=== PATIENT | male | born 1950 | race Caucasian/White ===

== ENCOUNTER → 2017-09-15 10:05 | Outpatient (CLI) | payer OTHER, SELFPAY | PROVIDERS: Visit Provider Family Medicine | DX: R31.9 Hematuria, unspecified (principal) | CPT/HCPCS: 87086 ==

== ENCOUNTER → 2018-04-28 08:59 | Outpatient (CLI) | payer OTHER, SELFPAY ==
[2018-04-28 10:45] LABS: AST(SGOT) 31 U/L (15-37); Alanine Aminotransfer ALT/SGPT 50 U/L (16-61); Albumin, Serum 3.6 g/dL (3.2-5.0); Alkaline Phosphatase 69 U/L (45-117); Anion Gap 4 (5-15); BUN 13 mg/dL (7-18); BUN/Creat Ratio 12.4 RATIO (10-20); Calcium,Total 8.1 mg/dL (8.5-10.1); Chloride 107 mmol/L (98-107); Cholesterol 163 mg/dL (200); Creatinine, Serum 1.05 mg/dL (0.70-1.30); EST Glomerular Filtration Rate 75 mL/min (>60); Est Glom Filt Rate - Afr Amer 91 mL/min (>60); Globulin 3.5 g/dL (2.2-4.2); Glucose 116 mg/dL (74-106); High Density Lipoprotein 34 mg/dL; Potassium 3.9 mmol/L (3.5-5.1); Protein, Total 7.1 g/dL (6.4-8.2); Sodium Level 140 mmol/L (136-145); Triglycerides 230 mg/dL; Very Low Density Lipoprotein 46 mg/dL (5-40)
[2018-04-28 10:50] LABS: Vitamin B12 620 pg/mL (211-911); Vitamin D,25 Hydroxy 61.9 ng/mL (29.95-100.01)
[2018-05-01 11:53] LABS: PSA, Free 0.48 ng/mL
== END ==
PROVIDERS: Family Provider Family Medicine; PCP Family Medicine; Visit Provider Family Medicine
DX: I10 Essential (primary) hypertension (principal); E55.9 Vitamin D deficiency, unspecified; E53.8 Deficiency of other specified B group vitamins; R97.20 Elevated prostate specific antigen [PSA]
CPT/HCPCS: 36415; 80053; 80061; 82306; 82607; 84153; 84154

== ENCOUNTER → 2019-02-23 | Outpatient (CLI) | payer OTHER, SELFPAY ==
[2018-05-12 08:56] VITALS: BMI 30.8
[2019-02-23 10:27] LABS: Anion Gap 9 (5-15); BUN 24 mg/dL (7-18); Calcium,Total 8.4 mg/dL (8.5-10.1); Chloride 108 mmol/L (98-107); Cholesterol 161 mg/dL (200); Creatinine, Serum 1.09 mg/dL (0.70-1.30); EST Glomerular Filtration Rate 72 mL/min (>60); Est Glom Filt Rate - Afr Amer 87 mL/min (>60); Glucose 105 mg/dL (74-106); High Density Lipoprotein 35 mg/dL; Potassium 4.1 mmol/L (3.5-5.1); Sodium Level 141 mmol/L (136-145); Triglycerides 137 mg/dL; Very Low Density Lipoprotein 27 mg/dL (5-40)
== END | disposition home or self-care (01) ==
LOC: MFPLAB 09:03
PROVIDERS: Family Provider Family Medicine; PCP Family Medicine; Referring Provider Family Medicine; Visit Provider Family Medicine
DX: I10 Essential (primary) hypertension (principal); E78.5 Hyperlipidemia, unspecified
CPT/HCPCS: 36415; 80048; 80061

== ENCOUNTER → 2019-03-29 | Outpatient (CLI) | payer OTHER, SELFPAY ==
[2018-05-12 08:56] VITALS: BMI 30.8
[2019-03-29 12:35] LABS: PSA,Total - Annual Screen 4.72 ng/mL (0.00-4.00)
[2019-03-29 13:06] LABS: Vitamin B12 582 pg/mL (211-911)
== END | disposition home or self-care (01) ==
LOC: MFPLAB 09:53
PROVIDERS: Family Provider Family Medicine; PCP Family Medicine; Referring Provider Family Medicine; Visit Provider Family Medicine
DX: E53.8 Deficiency of other specified B group vitamins (principal); E55.9 Vitamin D deficiency, unspecified; Z12.5 Encounter for screening for malignant neoplasm of prostate
CPT/HCPCS: 36415; 82306; 82607; 84153; G0103

== ENCOUNTER → 2019-09-07 | Outpatient (CLI) | payer OTHER, SELFPAY ==
[2019-08-20 15:34] VITALS: BMI 31.8
--- NOTE | 2019-09-07 10:58 | VDLE_ITS ---
Reason For Study: Lt Leg Pain RIGHT LEFT CFV is compressible, spontaneous, phasic, GSV is normal. competent and demonstrates normal CFV is compressible, spontaneous, phasic, augmentation. competent, and demonstrates normal Procedure augmentation. Exam performed in department. FV is compressible, spontaneous, phasic, Pt sent home per Dr. Calero. competent and demonstrates normal A preliminary report was called and/or faxed augmentation. to Dr. Galilea Clark. POP V is compressible, spontaneous, phasic, competent and demonstrates normal augmentation. T/P Trunk is compressible. PTV is compressible. LT PerV is compressible. 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 Interpretation Summary Deep veins of the left lower extremity are patent and compressible segmentally. There is no evidence of left lower extremity deep vein thrombosis. Valvular competence appears intact within the proximal deep venous system on the left . The left great saphenous vein appears patent and compressible segmentally. 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 The aneurysm is thrombus lined, though arterial flow is maintained. Clinical correlation is advised. Ordering Physician: Jeff Calero Referring Physician: Jeff Calero Performed By: Genie Bustos, BALTAZAR, RVT
== END | disposition home or self-care (01) ==
LOC: CVS 10:51
PROVIDERS: PCP Family Medicine; Referring Provider Family Medicine; Visit Provider Family Medicine
DX: M79.605 Pain in left leg (principal)
CPT/HCPCS: 93971

== ENCOUNTER → 2019-09-10 | Outpatient (CLI) | payer OTHER, SELFPAY ==
[2019-08-20 15:34] VITALS: BMI 31.8
== END | disposition home or self-care (01) ==
LOC: CVS 13:46
PROVIDERS: PCP Family Medicine; Referring Provider Family Medicine; Visit Provider Family Medicine
DX: R20.9 Unspecified disturbances of skin sensation (principal)
CPT/HCPCS: 93922

== ENCOUNTER → 2019-09-27 | Outpatient (CLI) | payer OTHER, SELFPAY ==
[2019-08-20 15:34] VITALS: BMI 31.8
[2019-09-27 14:00] LABS: Creatinine, Serum 1.05 mg/dL (0.70-1.30); EST Glomerular Filtration Rate 75 mL/min (>60); Est Glom Filt Rate - Afr Amer 90 mL/min (>60)
== END | disposition home or self-care (01) ==
PROVIDERS: PCP Family Medicine; Referring Provider Surgery Vascular Surgery; Visit Provider Surgery Vascular Surgery
DX: I70.212 Atherosclerosis of native arteries of extremities with intermittent claudication, left leg (principal); I72.4 Aneurysm of artery of lower extremity
CPT/HCPCS: 36415; 82565

== ENCOUNTER → 2019-10-05 07:26 | Outpatient (CLI) | payer OTHER, SELFPAY ==
[2019-08-20 15:34] VITALS: BMI 31.8
--- NOTE | 2019-10-05 07:33 | CT_ITS ---
STUDY: CTA OF THE ABDOMINAL AORTA AND BILATERAL LOWER EXTREMITIES REASON FOR EXAM: Male, 69 years old. PT STATED LEFT LEG PAIN, R/O ATHEROSCLEROSIS, CLAUDICATION RADIATION DOSAGE (If Supplied By Facility): CTDIvol = ( 8.98 ) mGy, DLP = ( 1546.22 ) mGycm TECHNIQUE: Axial CT angiography multi-detector data acquisition was obtained from the dome of the liver to the ankles following intravenous administration of 100ML ISOVUE 370. Axial images and MIP images were reconstructed from the axial data set. Post-processing of the angiographic images was performed, with multiplanar reformation and 3D reconstruction. Individualized dose optimization techniques were used for this CT. TECHNICAL QUALITY: Good COMPARISON: None. Descriptors of Narrowing: None (0%) Mild (< 50%) Moderate (50-70%) Severe (70-90%) Subtotal/Total Occlusion (90-100%) Non-Evaluable (technically non-diagnostic FINDINGS: Fatty infiltration of the liver. Small hiatal hernia. Small benign-appearing retroperitoneal lymphadenopathy. Sigmoid diverticulosis. Abdominal aorta: Scattered atherosclerotic plaques of the infrarenal abdominal aorta. Celiac and superior mesenteric arteries: No demonstrated narrowing. Inferior mesenteric artery: No demonstrated narrowing. Right renal artery(arteries): No demonstrated narrowing. Left renal artery(arteries): No demonstrated narrowing. Right common iliac artery: Nonstenotic atherosclerotic plaques. Right external iliac artery: No demonstrated narrowing. Right internal iliac artery: No demonstrated narrowing. Left common iliac artery: Nonstenotic atherosclerotic plaques. Left external iliac artery: No demonstrated narrowing. Left internal iliac artery: No demonstrated narrowing. RIGHT LOWER EXTREMITY Right common femoral artery: No demonstrated narrowing. Right profundus femoris: No demonstrated narrowing. Right superficial femoral: No demonstrated narrowing. Right popliteal artery: No demonstrated narrowing. Right tibioperoneal trunk: No demonstrated narrowing. Right anterior tibial artery: No demonstrated narrowing. Right posterior tibial artery: No demonstrated narrowing. Right peroneal artery: No demonstrated narrowing. LEFT LOWER EXTREMITY Left common femoral artery: No demonstrated narrowing. Left profundus femoris: No demonstrated narrowing. Left superficial femoral: No demonstrated narrowing. Left popliteal artery: There is occlusion of the popliteal artery at the level of the knee joint. A thrombus is seen within the popliteal artery. Incidental note is made of a 3.5 cm x 2.7 cm popliteal cyst on the left side. Left tibioperoneal trunk: The tibioperoneal trunk is occluded. Left anterior tibial artery: No demonstrated narrowing. Left posterior tibial artery: No demonstrated narrowing. Left peroneal artery: No demonstrated narrowing. CT/CTA Abd w/Runoff W/WO Contrast IMPRESSION: Thrombus in the left popliteal artery with occlusion of the popliteal artery at the level of the knee joint. There is reconstruction of the anterior tibial, posterior tibial and peroneal arteries distal to the tibial peroneal trunk via collaterals. Electronically Signed: Sim Earl, at 10:20 EDT , Service support ,
== END ==
PROVIDERS: PCP Family Medicine; Referring Provider Surgery Vascular Surgery; Visit Provider Surgery Vascular Surgery
DX: I70.212 Atherosclerosis of native arteries of extremities with intermittent claudication, left leg (principal); I72.4 Aneurysm of artery of lower extremity; M79.605 Pain in left leg
CPT/HCPCS: 75635; Q9967

== ENCOUNTER → 2019-11-09 | Outpatient (CLI) | payer OTHER, SELFPAY ==
[2019-08-20 15:34] VITALS: BMI 31.8
[2019-11-09 13:29] LABS: Anion Gap 4 (5-15); BUN 18 mg/dL (7-18); BUN/Creat Ratio 16.5 RATIO (10-20); Calcium,Total 9.2 mg/dL (8.5-10.1); Chloride 108 mmol/L (98-107); Cholesterol 146 mg/dL (200); Creatinine, Serum 1.09 mg/dL (0.70-1.30); EST Glomerular Filtration Rate 72 mL/min (>60); Est Glom Filt Rate - Afr Amer 87 mL/min (>60); Glucose 107 mg/dL (74-106); High Density Lipoprotein 35 mg/dL; Sodium Level 139 mmol/L (136-145); Triglycerides 146 mg/dL; Very Low Density Lipoprotein 29 mg/dL (5-40)
== END | disposition home or self-care (01) ==
LOC: MTLAB 10:02
PROVIDERS: PCP Family Medicine; Referring Provider Family Medicine; Visit Provider Family Medicine
DX: E78.5 Hyperlipidemia, unspecified (principal); I10 Essential (primary) hypertension
CPT/HCPCS: 80048; 80061

== ENCOUNTER → 2019-11-14 07:53 | Outpatient (CLI) | payer OTHER, SELFPAY ==
[2019-08-20 15:34] VITALS: BMI 31.8
--- NOTE | 2019-11-14 08:01 | VDLE_ITS ---
Reason For Study: Atherosclerosis, Pre-surgical RIGHT LEFT GSV prox thigh, 0.23 x 0.24cm. GSV prox thigh, 0.38 x 0.37 cm. GSV mid thigh, 0.22 x 0.24 cm. GSV mid thigh, 0.38 x 0.38 cm. GSV distal thigh, 0.19 x 0.19 cm. GSV distal thigh, 0.36 x 0.36 cm. GSV knee, 0.20 x 0.24 cm. GSV knee, 0.26 x 0.28 cm. GSV prox calf, 0.25 x 0.28 cm. GSV prox calf, 0.25 x 0.25 cm. Branch prox calf, 0.20 x 0.20 cm. GSV mid calf, 0.26 x 0.27 cm. GSV mid calf, 0.29 x 0.30 cm. GSV distal calf, 0.22 x 0.21 cm. GSV distal calf, 0.25 x 0.28 cm. SSV prox, 0.27 x 0.29 cm. SSV prox, 0.25 x 0.26 cm. SSV mid, 0.30 x 0.31 cm. SSV mid, 0.24 x 0.24 cm. SSV distal, 0.22 x 0.24 cm. Branch mid calf, 0.14 x 0.13 cm. SSV distal, 0.21 x 0.24 cm. Procedure Exam performed in department. Interpretation Summary Bilateral saphenous veins appear adequate wiht the left better than the right. Ordering Physician: Wong Martinez Referring Physician: Mark Bowles MD Performed By: Cecy Sequeira RVT
== END ==
PROVIDERS: PCP Family Medicine; Referring Provider Surgery Vascular Surgery; Visit Provider Surgery Vascular Surgery
DX: Z01.818 Encounter for other preprocedural examination (principal); I70.212 Atherosclerosis of native arteries of extremities with intermittent claudication, left leg; I72.4 Aneurysm of artery of lower extremity
CPT/HCPCS: 93970

== ENCOUNTER → 2020-05-30 12:41 | Outpatient (CLI) | payer OTHER, SELFPAY ==
[2019-08-20 15:34] VITALS: BMI 31.8
[2020-05-30 15:07] LABS: Hematocrit 44.8 % (40-54); Hemoglobin 14.7 g/dL (13.0-16.5); Mean Corp Hgb Conc 32.8 g/dL (32-36); Mean Corpuscular Hgb 29.6 pg (27.0-32.0); Mean Corpuscular Volume 90.3 fL (80-94); Mean Platelet Vol. 11.1 fl (6.2-12.0); Platelet Count 238 K/mm3 (150-450); RBC Distribution Width CV 12.7 % (11.6-14.6); RBC Distribution Width SD 42.4 fl (35.1-43.9); Red Blood Count 4.96 M/mm3 (4.6-6.2); White Blood Count 6.4 K/mm3 (4.4-11.0)
[2020-05-30 15:33] LABS: Vitamin B12 434 pg/mL (211-911); Vitamin D,25 Hydroxy 67.5 ng/mL
[2020-05-30 15:55] LABS: ALB/GLOB Ratio 1.2 RATIO (0.9-2.4); AST(SGOT) 25 U/L (15-37); Alanine Aminotransfer ALT/SGPT 38 U/L (16-61); Alkaline Phosphatase 78 U/L (45-117); Anion Gap 7 (5-15); BUN 14 mg/dL (7-18); BUN/Creat Ratio 13.2 RATIO (10-20); Calcium,Total 8.8 mg/dL (8.5-10.1); Chloride 108 mmol/L (98-107); Cholesterol 151 mg/dL (200); Creatinine, Serum 1.06 mg/dL (0.70-1.30); EST Glomerular Filtration Rate 74 mL/min (>60); Est Glom Filt Rate - Afr Amer 89 mL/min (>60); Globulin 3.3 g/dL (2.2-4.2); Glucose 88 mg/dL (74-106); High Density Lipoprotein 37 mg/dL; PSA,Total- Diagnostic 6.84 ng/mL (0.0-4.0); Protein, Total 7.3 g/dL (6.4-8.2); Sodium Level 141 mmol/L (136-145); Triglycerides 142 mg/dL; Very Low Density Lipoprotein 28 mg/dL (5-40)
== END ==
PROVIDERS: PCP Family Medicine; Referring Provider Family Medicine; Visit Provider Family Medicine
DX: I72.4 Aneurysm of artery of lower extremity (principal); I10 Essential (primary) hypertension; R97.20 Elevated prostate specific antigen [PSA]; E55.9 Vitamin D deficiency, unspecified; E53.8 Deficiency of other specified B group vitamins
CPT/HCPCS: 36415; 80053; 80061; 82306; 82607; 84153; 85027

== ENCOUNTER → 2020-07-28 | Outpatient (CLI) | payer OTHER, SELFPAY ==
[2019-08-20 15:34] VITALS: BMI 31.8
--- NOTE | 2020-07-28 | IMM_PTH ---
PATIENT: YOSI GUTIERREZ LOC: [facility] U#:[id number] AGE/SX: 69/M ROOM: RE07/28/[address]: Dr. Beck Betancur MD : 1950 BED: DIS: 07/28/2020 SPEC #: [id number] RECD: 07/30/20 10:51 STATUS: TONY REQ #: [id number] SABRINA: 07/28/20 00:[address]: Beck Betancur DEPT: IMMUNOHISTOCHEMISTRY RECD BY: Hayley Asif ENTERED: 07/30/20 10:52 SP TYPE: IMMUNO OTHR DR: Dr. Mark Bowles MD Tissues: A - PROSTATE RIGHT C - PROSTATE RIGHT Procedures: 34BE12 (add) P40 (add) 34BE12 (initial) PHYSICIAN & INSTITUTION [place] [id number] SPECIMEN INFORMATION: Tissue Source: A - Right prostate, apex, core biopsy, C - Right prostate, base, core biopsy Clinical Info: Elevated PSA Specimen Number: [id number] A & C CPT code: 59299, 60382 x3 METHODOLOGY: Deparaffinized sections of prefer/formalin-fixed tissue or PAP/DQ stained slides are incubated with monoclonal/polyclonal antibodies/oligonucleotide probes. Localization is made via biotin free immunoperoxidase method. Appropriate controls are performed and reacted as expected. Results on target cell population are indicated in the following table: RESULTS: ANTIBODY / CLONE RESULT Block A P40 (BC28) negative 34BE12 (34BE12) negative Block C P40 (BC28) negative 34BE12 (34BE12) negative These tests were developed and their performance characteristics determined by [facility]. They may not have been cleared or approved by the U.S. Food and Drug Administration. The FDA has determined that such clearance or approval is not necessary. The above immunohistochemical/dualISH markers are ordered and reviewed by the Pathologist. INTERPRETATION: A. Right prostate, apex, core biopsy: Adenocarcinoma. C. Right prostate, base, core biopsy: Adenocarcinoma. AM:nik 07/31/2020
--- NOTE | 2020-07-28 08:00 | PROSBIL_PTH ---
PATIENT: YOSI GUTIERREZ LOC: [facility] U#:[id number] AGE/SX: 69/M ROOM: RE07/28/[address]: Dr. Beck Betancur MD : 1950 BED: DIS: 07/28/2020 SPEC #: [id number] RECD: 07/28/20 12:03 STATUS: TONY TONNY #: [id number] SABRINA: 07/28/20 08:[address]: Beck Betancur DEPT: SURGICAL PATHOLOGY RECD BY: Anupama Zuniga ENTERED: 07/28/20 13:36 SP TYPE: PROST BX NAIMA DR: Dr. Mark Bowles MD Tissues: A - PROSTATE RIGHT B - PROSTATE RIGHT C - PROSTATE RIGHT D - PROSTATE LEFT E - PROSTATE LEFT F - PROSTATE LEFT Procedures: PROSTATE BX HEADER OPERATION: Prostate biopsy PRE-OP DIAGNOSIS: Elevated PSA TISSUE SUBMITTED: A - Right apex, B - Right mid, C - Right base, D - Left apex, E - Left mid, F - Left base MICROSCOPIC DIAGNOSIS A. Right prostate, apex, core biopsy: Adenocarcinoma. [place] grade: 6 (3+3) Cores involved: 1 out of 2 cores Tissue involved: 10% Greatest tumor length: 1.2 mm Perineural invasion: Present See comment. B. Right prostate, mid, core biopsy: Adenocarcinoma. Yas grade: 6 (3+3) Cores involved: 2 out of 2 cores Tissue involved: 75% Greatest tumor length: 6 mm Perineural invasion: Present, multifocal C. Right prostate, base, core biopsy: Adenocarcinoma. [place] grade: 6 (3+3) Cores involved: 2 out of 2 cores Tissue involved: 65% Greatest tumor length: 7 mm (discontinuous) Perineural invasion: Present See comment. D. Left prostate, apex, core biopsy: Chronic inflammation with focal acute inflammation. E. Left prostate, mid, core biopsy: Adenocarcinoma. [place] grade: 6 (3+3) Cores involved: 2 out of 2 cores Tissue involved: >95 % Greatest tumor length: 9.5 mm F. Left prostate, base, core biopsy: Adenocarcinoma. Yas grade: 8 (5+3) Cores involved: 2 out of 2 cores Tissue involved: >95% Greatest tumor length: 10 mm AM:nik 07/30/2020 COMMENT A & C. Immunohistochemistry ([id number]) supports the above diagnosis. MICROSCOPIC DESCRIPTION Slides are reviewed. GROSS DESCRIPTION A - Received is one container designated prostate, right apex. The specimen consists of two elongated fragments of light dickson-white soft tissue each measuring 0.7 cm in length and 0.1 cm in diameter. The specimen is totally submitted in one cassette. B - Received is one container designated prostate, right mid. The specimen consists of two elongated fragments of light dickson-white soft tissue each measuring 1 cm in length and 0.1 cm in diameter. The specimen is totally submitted in one cassette. C - Received is one container designated prostate, right base. The specimen consists of two elongated fragments of light dickson-white soft tissue each measuring 1 cm in length and 0.1 cm in diameter. The specimen is totally submitted in one cassette. D - Received is one container designated prostate, left apex. The specimen consists of one elongated fragment of light dickson-white soft tissue measuring 1 cm in length and 0.1 cm in diameter. The specimen is totally submitted in one cassette. E - Received is one container designated prostate, left mid. The specimen consists of two elongated fragments of light dickson-white soft tissue each measuring 1.5 cm in length and 0.1 cm in diameter. The specimen is totally submitted in one cassette. F - Received is one container designated prostate, left base. The specimen consists of two elongated fragments of light dickson-white soft tissue each measuring 1.5 cm in length and 0.1 cm in diameter. The specimen is totally submitted in one cassette. / AM:nik 07/29/20 TC:0 [facility]: [id number] x6
== END | disposition home or self-care (01) ==
LOC: LABSPEC 12:10
PROVIDERS: PCP Family Medicine; Referring Provider Urology; Visit Provider Urology
DX: R97.20 Elevated prostate specific antigen [PSA] (principal)
CPT/HCPCS: 88305; 88341; 88342; G0416

== ENCOUNTER → 2020-08-19 06:59 | Outpatient (CLI) | payer OTHER, SELFPAY ==
[2019-08-20 15:34] VITALS: BMI 31.8
--- NOTE | 2020-08-19 07:02 | NM_ITS ---
CLINICAL: 69-year-old male with reported history of carcinoma of the prostate. WHOLE BODY 99m Tc MDP RADIONUCLIDE BONE SCINTIGRAPHY COMPARISON: None available FINDINGS: Following the intravenous administration of approximately 25.0 mCi of 99m Tc MDP, whole body bone images reveal: 1. Increased radiopharmaceutical concentration is defined in the acromioclavicular, glenohumeral and sternoclavicular compartments of both shoulders, the visualized bilateral wrists, patellofemoral compartments of both knees, dorsal lateral compartment of the left ankle, the right midfoot, fifth lumbar vertebra anteriorly and posteriorly to the right of the midline. 2. The remaining skeletal structures are scintigraphically unremarkable with normal-appearing renal images and urinary bladder activity identified. Enhanced tracer uptake is visualized in the bilateral maxilla most consistent with periodontal disease and/or periostitis. NM/Bone Scan Whole Body IMPRESSION: 1. The increase in tracer distribution defined in the bilateral shoulders, both wrist articulations, knees bilaterally, left ankle, right midfoot, fifth lumbar vertebra is most consistent with degenerative arthritis. 2. There is no definitive typical scintigraphic evidence of diffuse axial skeletal metastatic disease on the current examination. Electronically Signed: Jayce Leung DO at 21:48 EST Tel , Service support ,
== END ==
PROVIDERS: PCP Family Medicine; Visit Provider Urology
DX: C61 Malignant neoplasm of prostate (principal)
CPT/HCPCS: 78306

== ENCOUNTER 2020-09-03 11:29 | Day surgery (SDC) | payer OTHER, SELFPAY ==
[2020-08-19 08:48] VITALS: BMI 31.6
[2020-09-03 12:01] VITALS: BP 151/85; PULSE 69; RESP 16; TEMP 36.9; O2SAT 97; BMI 32.3
[2020-09-03] MEDS: Lactated Ringers 1,000 ML 100 ML IV (12:08)
[2020-09-03] MEDS: Cefazolin 2 GM in 0.9% Normal Saline 100 ML IV (14:43)
--- NOTE | 2020-09-03 15:09 | PCM.HP.STD ---
Problem List (1) Prostate cancer Status: Chronic History of Present Illness Date of Admission: 09/03/20 Chief Complaint: Prostate cancer The patient is a 69 year old male with a history of prostate cancer with [place] 8 disease he is going to undergo radiation treatments today were to place spacer gel matrix to separate the rectum from the prostate as a hope to protect the rectum from radiation exposure and also organ to place markers in the prostate marker prostate with fiducial markers for radiation treatment planning. Past Medical History Past Medical History (Chronic Problems): Chronic Problems (Last Reviewed 08/19/20 @ 09:[address] Son Tee MD) Prostate cancer (Chronic) Venous insufficiency of left leg (Chronic) Atherosclerosis of coronary artery of [place] heart without angina pectoris (Chronic) Essential (primary) hypertension (Chronic) Hyperlipidemia (Chronic) Medical History: Medical History (Last Reviewed 08/19/20 @ 09:[address] Son Tee MD) Prostate cancer (Chronic) C61 Venous insufficiency of left leg (Chronic) I87.2 Atherosclerosis of coronary artery of [place] heart without angina pectoris (Chronic) I25.10 Essential (primary) hypertension (Chronic) I10 Hyperlipidemia (Chronic) E78.5 Obesity E66.9 Allergies codeine Allergy (Intermediate, Verified 09/03/20 11:39) unknown Home Medications: Ambulatory Orders Medication Instructions Recorded aspirin 81 mg tablet,delayed 81 mg PO DAILY 03/23/18 release cholecalciferol (vitamin D3) 50 2,000 unit PO DAILY 03/23/18 mcg (2,000 unit) capsule omega-3 fatty acids-fish oil 360 1 cap PO DAILY 03/23/18 mg-1,200 mg capsule rosuvastatin 20 mg tablet 20 mg PO DAILY #90 tab 05/12/18 nitroglycerin 0.4 mg sublingual 0.4 mg SUBLINGUAL Q5-15M PRN #25 05/05/20 tablet tab bicalutamide 50 mg tablet 50 mg PO DAILY tab 08/19/20 bisoprolol 10 1 tab PO DAILY tab 08/19/20 mg-hydrochlorothiazide 6.25 mg tablet cilostazol 100 mg tablet 100 mg PO BID tab 08/19/20 clopidogrel 75 mg tablet 75 mg PO DAILY tab 08/19/20 cyanocobalamin (vitamin B-12) 1,000 mcg PO DAILY 08/19/20 1,000 mcg capsule lisinopril 20 mg tablet 20 mg PO DAILY #90 tab 08/19/20 Surgical History: Surgical History (Last Reviewed 08/19/20 @ 09:[address] Son Tee MD) History of coronary artery stent placement (Resolved) Onset Date: 05/2008 Z95.5 [id number] LAD w/ Xience 3.0 x 23 mm, Xience 3.0 x 18 mm & Xience 3.0 x 8 mm 05/15/2008; [id number] RCA w/ Xience 3.5 x 23 mm 06/24/2008 Surgical History: no surgical history Smoking Status: Former smoker Tobacco Use: Non-smoker Review of Systems Constitutional: Denies: Chills, Fever, Weight Change HEENT: Denies: Head Aches, Sinus Congestion, Sinus Drainage Cardiovascular: Denies: Chest Pain, Palpitations Respiratory: Denies: Cough, Shortness of breath at rest, Sputum production Gastrointestinal: Denies: Abdominal Pain, Nausea, Vomiting Genitourinary: Denies: Dysuria Musculoskeletal: Denies: Joint Pain, Joint Tenderness Skin: Denies: Rash, Wounds Neurological: Denies: Numbness, Tingling, Focal weakness Psychiatric: Denies: Anxiety, Depression, Homicidal Ideations, Suicidal Ideations Hematologic/ Lymphatic: Denies: Easy Bruising, Easy Bleeding VTE Information - Inpt Only VTE Present on Admission: No - Physical Exam Vitals/I&O's: Vital Signs Temp Pulse Resp BP Pulse Ox 98.5 F 69 16 151/85 H 97 09/03/20 12:01 09/03/20 12:01 09/03/20 12:01 09/03/20 12:01 09/03/20 12:01 Oxygen Delivery Method Room Air Weight: 99.2 kg Body Mass Index (BMI) 32.3 Intake and Output for Last 24 Hours 09/01/20 09/02/20 09/03/20 23:59 23:59 23:59 Intake Total 110 / 110 Balance 110 / 110 General: Alert, Oriented x3, Cooperative HEENT: Atraumatic, PERRLA, EOMI, Normocephalic Neck: Supple, No JVD, Negative Carotid Bruits Lungs: Clear to auscultation, Normal air movement Cardiovascular: Regular rate, No murmurs Abdomen: Bowel Sounds Present, Soft, Non Tender Extremities: No edema, Capillary Refill Less than 3 Seconds Skin: No rashes, No breakdown Musculoskeletal: No Tenderness to Palpation of Joints or Extremities Neurological: Cranial nerves II-XII grossly intact Psych/Mental Status: Normal Affect, Appropriate Microbiology Past 72 Hours 09/02/20 08:35 Interface Orders SARS-CoV-2 Antigen (Rapid) - Final Current Medications Lactated Ringer's () 1,000 mls @ 100 mls/hr IV .Q10H CAROLINE Last Admin: 09/03/20 12:08 Dose: 100 mls/hr Documented by: Assessment/Plan All Active Problems (Last Reviewed 08/19/20 @ 09:[address] Son Tee MD) History of coronary artery stent placement (Resolved 05/2008) Plan to proceed with treatment of prostate cancer with radiation treatment today replace the gold fiducial markers inside the prostate. And also into place a spacer gel matrix to separate the rectum to the prostate.
--- NOTE | 2020-09-03 15:12 | DCINST_ITS ---
Discharge Diet: Light diet - advance as tolerated Discharge Activity: Return to Normal Activity Call your doctor if your incision/area has: Continuous Slow Oozing, Sudden Increased Bleeding, Increased Pain/ Swelling, Increased Redness, Foul Smelling Discharge, Swelling at the incision site Call your doctor if you observe: Fever of 101 or Higher Suture Line Care: Avoid Pulling/Pushing, Avoid Pinching/Bending Allergies/Adverse Reactions: Allergies codeine Allergy (Intermediate, Verified 09/03/20 11:39) unknown Medications to take at Discharge aspirin 81 mg tablet,delayed release 81 mg PO DAILY 03/23/18 cholecalciferol (vitamin D3) 50 mcg (2,000 unit) capsule 2,000 unit PO DAILY 03/23/18 omega-3 fatty acids-fish oil 360 mg-1,200 mg capsule 1 cap PO DAILY 03/23/18 rosuvastatin 20 mg tablet 20 mg PO DAILY #90 tab 05/12/18 nitroglycerin 0.4 mg sublingual tablet 0.4 mg SUBLINGUAL Q5-15M PRN #25 tab 05/05/20 bicalutamide 50 mg tablet 50 mg PO DAILY tab 08/19/20 bisoprolol 10 mg-hydrochlorothiazide 6.25 mg tablet 1 tab PO DAILY tab 08/19/20 cilostazol 100 mg tablet 100 mg PO BID tab 08/19/20 clopidogrel 75 mg tablet 75 mg PO DAILY tab 08/19/20 cyanocobalamin (vitamin B-12) 1,000 mcg capsule 1,000 mcg PO DAILY 08/19/20 lisinopril 20 mg tablet 20 mg PO DAILY #90 tab 08/19/20 Primary Care Physician: Enmanuel Bowles MD [Primary Care Provider] - Test Results: Test results from this visit will be discussed in further detail at your follow- up appointment, if applicable. Please Follow Up With: Beck Betancur MD When: keep next appt for hormone therapy
--- NOTE | 2020-09-03 15:13 | OP.PCM_ITS ---
Problem List (1) Prostate cancer Status: Chronic Report of Operation Date of Procedure: 09/03/20 Pre-Operative Diagnosis: Prostate cancer Post-Operative Diagnosis: Same Surgery/Procedure Performed:: Transrectal ultrasound-guided placement of gold fiducial markers, transrectal ultrasound-guided placement of spacer organ at risk gel matrix. Description of Surgical Findings:: Patient was taken back to the operating room, after induction of anesthesia, he was placed in dorsolithotomy position. The patient had a bowel prep preoperatively. He was given IV antibiotics preoperatively. He underwent a timeout procedure. He was marked and the procedure was reviewed with the operating room staff. Once he was in dorsolithotomy position. The genitals and perineum were prepped and draped in the usual sterile fashion. I then introduced a biplanar ultrasound probe into the rectum and performed ultrasonography on the prostate. The prostate seminal vesicles, the base, the mid prostate, the apex were identified. The Denonvilliers' fascia was also identified. I first advanced the first marker in the patient's right side to the mid prostate and deployed the first bobbin marker. The second bobbin marker was then advanced under ultrasound guidance to the patient's left mid prostate . And finally the third bobbin marker was advanced of the prostate left apex and deployed under ultrasound guidance. All 3 markers were confirmed to be present within the prostate on ultrasonography. I then introduced a biplanar ultrasound probe into the rectum and performed ultrasonography and identified the Denonvilliers' fascia the prostate mid base and apex and seminal vesicles. The spacer gel mix was then prepared on the back table per manufactures instruction. Under ultrasound guidance in the midline perineum a bevel needle down we advanced through the perineum below the prostate into the space of Denonvilliers' fascia. This space which could be identified by ultrasound with a bright white layer between the prostate and the rectum. I then injected a puff of normal saline to identify the space further. After I confirmed that the needle was in the correct space in the mid prostate and the space of Denonvilliers' fascia between the rectum and the prostate. Then over the course of 15 seconds the gel matrix was injected slowly there was nice separation between the prostate and the rectum at the gel matrix was injected. The position of the gel matrix was confirmed by ultrasound. Then the injection needle was removed intact. Patient's perineum was cleaned patient was taken out of stirrups and then taken back to the PACU in good condition. Type of Anesthesia:: General Drains: none - Admit VTE Documentation VTE Present on Admission: No VTE Mechan Device Prophylaxis: SCD's
[2020-09-03 15:18] VITALS: BP 128/95; BP 151/85; PULSE 78; RESP 16; TEMP 36.4
[2020-09-03 15:30] VITALS: BP 126/80; BP 151/85; PULSE 68; RESP 16; O2SAT 98
[2020-09-03 15:44] VITALS: BP 133/84; BP 151/85; PULSE 59; RESP 16; O2SAT 98
[2020-09-03 15:45] VITALS: BP 139/75; BP 151/85; PULSE 59; RESP 16; TEMP 36.1; O2SAT 95
[2020-09-03 16:03] VITALS: BP 151/85
== END 2020-09-03 16:05 | disposition home or self-care (01) ==
LOC: SDC 11:30 → AC 11:31
PROVIDERS: PCP Family Medicine; Referring Provider Urology; Visit Provider Urology
PROC: (CPT 55874; principal; 2020-09-03 13:05)
DX: C61 Malignant neoplasm of prostate (principal); I25.10 Atherosclerotic heart disease of native coronary artery without angina pectoris; E78.5 Hyperlipidemia, unspecified; I10 Essential (primary) hypertension; Z79.899 Other long term (current) drug therapy; Z87.891 Personal history of nicotine dependence; Z95.5 Presence of coronary angioplasty implant and graft; Z20.822 Contact with and (suspected) exposure to COVID-19
CPT/HCPCS: 55874; 55876; 87426; C9803; J7120; J2405

== ENCOUNTER → 2020-09-17 10:30 | Outpatient (CLI) | payer OTHER, SELFPAY ==
[2020-09-03 12:01] VITALS: BMI 32.3
[2020-09-17 12:25] LABS: Absolute Neutrophil Count 4.4 X10^3/uL (2.0-7.7); Basophil# 0.02 X10^3/uL; Basophil% 0.3 % (0-1); Eosinophil# 0.18 X10^3/uL; Eosinophils% 2.4 % (0-5); Hematocrit 45.2 % (40-54); Hemoglobin 15.1 g/dL (13.0-16.5); Lymphocyte % 28.4 % (19-41); Mean Corp Hgb Conc 33.4 g/dL (32-36); Mean Corpuscular Hgb 30.3 pg (27.0-32.0); Mean Corpuscular Volume 90.6 fL (80-94); Mean Platelet Vol. 11.4 fl (6.2-12.0); Monocyte# 0.65 X10^3/uL; Monocyte% 8.8 % (0-10); NRBC Flagged by Analyzer 0 % (0-5); Neutrophil # 4.44 X10^3/uL (2.7-7.7); Platelet Count 264 K/mm3 (150-450); RBC Distribution Width SD 42.9 fl (35.1-43.9); Red Blood Count 4.99 M/mm3 (4.6-6.2); White Blood Count 7.4 K/mm3 (4.4-11.0)
[2020-09-17 12:55] LABS: Creatinine, Serum 1.03 mg/dL (0.70-1.30); EST Glomerular Filtration Rate 76 mL/min (>60); Est Glom Filt Rate - Afr Amer 92 mL/min (>60)
== END ==
PROVIDERS: PCP Family Medicine; Referring Provider Radiology Radiation Oncology; Visit Provider Radiology Radiation Oncology
DX: Z01.818 Encounter for other preprocedural examination (principal); C61 Malignant neoplasm of prostate
CPT/HCPCS: 36415; 82565; 84153; 85025

== ENCOUNTER → 2020-09-18 13:35 | Outpatient (CLI) | payer OTHER, SELFPAY ==
[2020-08-19 08:48] VITALS: BMI 31.6
[2020-09-03 12:01] VITALS: BMI 32.3
--- NOTE | 2020-09-18 13:41 | CT_ITS ---
STUDY: CT PELVIS WITH CONTRAST REASON FOR EXAM: Male, 69 years old. PROSTATE CA. Radiation planning examination. RADIATION DOSAGE (If Supplied By Facility): CTDIvol = ( 24.83 ) mGy, DLP = ( 1495.53 ) mGycm TECHNIQUE: Transaxial imaging of the pelvis was performed without oral contrast. Oral and amp; IV REDICAT and amp; 100ML ISOVUE 300 was administered intravenously. Individualized dose optimization techniques were used for this CT. COMPARISON: None. FINDINGS: Normal urinary bladder. Prostatic enlargement. This causes indentation of the bladder base. The prostate measures 4.2 cm x 4.3 cm. Metallic radiation seeds are seen. There is also evidence of central prostatic calcification. The urethra is unremarkable. Normal visualized small intestine. There are multiple colonic diverticula of the sigmoid colon consistent with chronic diverticulosis. There is no pelvic fluid. There is no pelvic lymphadenopathy or mass lesion. There is diffuse atherosclerotic calcification of the pelvic arteries. Normal abdominal wall. There are degenerative changes of the visualized lumbar spine. CT/CT Pelvis W/CONT Therapy IMPRESSION: Prostatic enlargement with indentation at the bladder base. Prostatic calcification. Metallic radiation seeds are seen within the prostate. Electronically Signed: Sim Earl MD at 14:55 EDT , Service support ,
== END ==
PROVIDERS: PCP Family Medicine; Referring Provider Radiology Radiation Oncology; Visit Provider Radiology Radiation Oncology
DX: C61 Malignant neoplasm of prostate (principal)
CPT/HCPCS: 51600; 72193; Q9967

== ENCOUNTER → 2020-10-15 09:01 | Outpatient (CLI) | payer OTHER, SELFPAY ==
[2020-10-15 12:12] LABS: Absolute Lymphocyte Count 0.81 X10^3/uL (0.83-4.51); Absolute Neutrophil Count 3.3 X10^3/uL (2.0-7.7); Basophil# 0.01 X10^3/uL; Basophil% 0.2 % (0-1); Eosinophil# 0.23 X10^3/uL; Eosinophils% 4.7 % (0-5); Hematocrit 40.5 % (40-54); Hemoglobin 13.1 g/dL (13.0-16.5); Lymphocyte # 0.81 X10^3/ul (0.83-4.51); Lymphocyte % 16.5 % (19-41); Mean Corp Hgb Conc 32.3 g/dL (32-36); Mean Corpuscular Hgb 29.4 pg (27.0-32.0); Monocyte# 0.54 X10^3/uL; NRBC Flagged by Analyzer 0 % (0-5); Neutrophil # 3.31 X10^3/uL (2.7-7.7); Neutrophil % 67.4 % (47-70); Platelet Count 165 K/mm3 (150-450); RBC Distribution Width CV 12.9 % (11.6-14.6); RBC Distribution Width SD 42.5 fl (35.1-43.9); Red Blood Count 4.45 M/mm3 (4.6-6.2); White Blood Count 4.9 K/mm3 (4.4-11.0)
== END ==
PROVIDERS: PCP Family Medicine
DX: C61 Malignant neoplasm of prostate (principal)
CPT/HCPCS: 36415; 85025

== ENCOUNTER → 2020-11-05 08:52 | Outpatient (CLI) | payer OTHER, SELFPAY ==
[2020-11-05 12:19] LABS: Absolute Lymphocyte Count 0.87 X10^3/uL (0.83-4.51); Basophil# 0.03 X10^3/uL; Basophil% 0.5 % (0-1); Eosinophil# 0.26 X10^3/uL; Eosinophils% 4.3 % (0-5); Hematocrit 38.7 % (40-54); Lymphocyte # 0.87 X10^3/ul (0.83-4.51); Lymphocyte % 14.5 % (19-41); Mean Corp Hgb Conc 33.6 g/dL (32-36); Mean Corpuscular Hgb 30.2 pg (27.0-32.0); Mean Corpuscular Volume 89.8 fL (80-94); Mean Platelet Vol. 10.5 fl (6.2-12.0); Monocyte# 0.79 X10^3/uL; Monocyte% 13.2 % (0-10); NRBC Flagged by Analyzer 0 % (0-5); Neutrophil # 4.03 X10^3/uL (2.7-7.7); Neutrophil % 67.2 % (47-70); Platelet Count 269 K/mm3 (150-450); RBC Distribution Width CV 13.2 % (11.6-14.6); RBC Distribution Width SD 43.6 fl (35.1-43.9); Red Blood Count 4.31 M/mm3 (4.6-6.2)
== END ==
PROVIDERS: PCP Family Medicine; Referring Provider Radiology Radiation Oncology; Visit Provider Radiology Radiation Oncology
DX: C61 Malignant neoplasm of prostate (principal)
CPT/HCPCS: 36415; 85025

== ENCOUNTER → 2020-12-04 07:55 | Outpatient (CLI) | payer OTHER, SELFPAY ==
--- NOTE | 2020-12-04 07:59 | ART_ITS ---
Reason For Study: Atherosclerosis w/ claudication of left leg Procedure A bilateral lower extremity continuous wave Doppler with analog waveform analysis and ankle brachial indexes. Left Segmental Pressures Left brachial= 157mmHg. Left posterior tibial artery = 137mmHg. Left dorsalis pedis artery = 126mmHg. The left posterior tibial artery waveforms are monophasic. The left dorsalis pedis waveforms are monophasic. Right Segmental Pressures Right brachial= 168mmHg. Right posterior tibial artery = 209mmHg. Right dorsalis pedis artery = 192mmHg. The right posterior tibial artery waveforms are triphasic. The right dorsalis pedis waveforms are triphasic. Indices The right ankle brachial index by the posterior tibial artery is 1.24. The right ankle brachial index by the dorsalis pedis is 1.14. The left ankle brachial index by the posterior tibial artery is 0.82. The left ankle brachial index by the dorsalis pedis is 0.75. VL/Ankle Brachial Index Interpretation Summary Right leg with no occlusive disease noted at rest with an ARNOLD of 1.24 and triph asic flow. Left leg with monophasic flow and an ARNOLD 0.82. Ordering Physician: Wong Martinez Referring Physician: Mark Bowles MD Performed By: Cecy Sequeira RVT and Student
== END ==
PROVIDERS: PCP Family Medicine; Referring Provider Surgery Vascular Surgery; Visit Provider Surgery Vascular Surgery
DX: I70.212 Atherosclerosis of native arteries of extremities with intermittent claudication, left leg (principal); I72.4 Aneurysm of artery of lower extremity
CPT/HCPCS: 93922

== ENCOUNTER → 2021-04-10 11:01 | Outpatient (CLI) | payer OTHER, SELFPAY ==
--- NOTE | 2021-04-10 11:10 | MRI_ITS ---
STUDY: MRI LUMBAR SPINE WITH AND WITHOUT CONTRAST REASON FOR EXAM: Male, 70 years old. R FOOT DROP low back pain TECHNIQUE: Standardized fat and water weighted pulse sequences were obtained in the sagittal and axial planes. was administered for the contrast portion of the examination. COMPARISON: None FINDINGS: T11-T12: Normal endplates. Normal disc height, hydration and morphology. Normal bilateral facet joints. Normal central canal and bilateral lateral recesses. Normal bilateral intervertebral neural foramina. T12-L1: Normal endplates. Normal disc height, hydration and morphology. Normal bilateral facet joints. Normal central canal and bilateral lateral recesses. Normal bilateral intervertebral neural foramina. Lumbar spine is aligned. Conus terminates at T12-L1. Cauda equina is redundant and compressed at L2-L3. L1-2: Normal endplates. Normal disc height, hydration and degenerative morphology. Normal bilateral facet joints. Thecal sac is mildly stenotic. Bilaterally patent Recesses. Normal bilateral intervertebral neural foramina. L2-3: Normal endplates. Normal disc height, hydration and degenerative bulge morphology. Normal bilateral facet joints. Thecal sac is severely stenotic. Lateral recesses are patent. There is moderate bilateral foraminal stenosis.. Normal bilateral intervertebral neural foramina. L3-4: Degenerated endplates. Normal disc height, hydration and degenerative bulge morphology. Normal bilateral facet joints. Normal central canal and bilateral lateral recesses. Moderate bilateral foraminal stenosis. L4-5: Normal endplates. Normal disc height, hydration and degenerative bulge morphology. Degenerated bilateral facet joints. Normal central canal and bilateral lateral recesses. Foramina are severely stenotic. L5-S1: Degenerated endplates. Normal disc height, hydration and degenerative bulge morphology. Normal bilateral facet joints. Normal central canal and bilateral lateral recesses. Normal bilateral intervertebral neural foramina. Normal visualized sacral ala. Normal visualized paraspinous soft tissue structures. MRI/Spine Lumbar (Routine) IMPRESSION: Severe L2-L3 spondylotic thecal sac stenosis. Neurosurgical consultation advised. Multilevel foraminal stenoses, severe at L4-L5 bilaterally. Electronically Signed: Jam Fernandez MD at 19:56 EDT Tel , Service support ,
== END ==
PROVIDERS: PCP Family Medicine; Visit Provider Family Medicine
DX: M21.371 Foot drop, right foot (principal)
CPT/HCPCS: 72148

== ENCOUNTER → 2021-04-20 06:43 | Outpatient (CLI) | payer OTHER, SELFPAY | PROVIDERS: PCP Family Medicine; Referring Provider Internal Medicine Cardiovascular Disease; Visit Provider Internal Medicine Cardiovascular Disease | DX: C61 Malignant neoplasm of prostate (principal); I87.2 Venous insufficiency (chronic) (peripheral); I25.10 Atherosclerotic heart disease of native coronary artery without angina pectoris; I10 Essential (primary) hypertension; E78.5 Hyperlipidemia, unspecified; Z95.5 Presence of coronary angioplasty implant and graft ==

== ENCOUNTER → 2021-04-22 06:52 | Outpatient (CLI) | payer OTHER, SELFPAY ==
--- NOTE | 2021-04-22 09:40 | STRESSREP ---
Stress Test Report Exercise nuclear perfusion stress test. 70-year-old man with a history of chest pain. Medications aspirin rosuvastatin bisoprolol. Stress protocol: Resting EKG demonstrates normal sinus rhythm with a rate of 70 bpm normal intervals are noted resting blood pressure is 148/92 mmHg. The patient exercised according to regular Vern protocol for total duration of 4 minutes and 31 seconds. Patient completed 1 minute and 31 seconds into stage II of the Vern protocol. The maximum heart rate attained was 139 bpm which was 92% of maximum predicted heart rate the maximum workload was 7 metabolic equivalents. At rest there were no ST or T wave changes noted suggest ischemia at peak exercise downsloping ST depression was noted in leads II, III and aVF of approximately 1.7 mm. The above is suggestive of ischemia. Mild chest discomfort and shortness of breath was noted. The peak blood pressure was 190/98 mmHg. Myocardial perfusion protocol. 14.8 mCi of technetium 99m sestamibi was injected at rest. Patient exercised according to regular Vern protocol for total duration of 4 minutes and 31 seconds. At peak exercise 44.4 mCi of technetium 99m sestamibi was injected stress images were obtained stress and rest images were reconstructed and compared in the short axis vertical long horizontal long axis. Gated images were also obtained for Perfusion SPECT analysis: Review of the stress images demonstrate normal perfusion noted in the anterior wall and septum. There is a large defect noted involving the basal inferolateral wall extending to the apex. The resting images demonstrate a defect noted in the basal inferior and basal lateral wall. The apical lateral wall demonstrates an area of reversible ischemia suggestive of an ischemic zone. A previous basal inferior infarct is suggested. Gated SPECT analysis: The gated ejection fraction is 44%. Conclusion: Abnormal exercise myocardial perfusion stress test with evidence of lateral apical ischemia. Basal inferolateral infarct noted. Mild left ventricular systolic dysfunction. Poor functional capacity.
--- NOTE | 2021-04-22 11:05 | RAD_ITS ---
STUDY: X-RAY CHEST REASON FOR EXAM: Male, 70 years old. Abnormal stress -- for heart cath tomorrow TECHNIQUE: PA and lateral views of the chest. COMPARISON: None. FINDINGS: There is hyperinflation of the lungs consistent with chronic obstructive lung disease (COPD). There is no demonstrated pleural abnormality. Normal size heart. Normal mediastinum and matt. Normal visualized pulmonary arteries. There is atherosclerotic calcification of the aortic arch with tortuosity. Normal visualized thoracic spine. Normal visualized ribs, clavicles, and shoulders. There is no demonstrated abnormality of the visualized soft tissue structures of the upper abdomen. RAD/Chest PA and Lateral IMPRESSION: Hyperinflation. The lungs are clear. Electronically Signed: Sim Earl MD at 15:35 EDT , Service support ,
== END ==
PROVIDERS: PCP Family Medicine; Referring Provider Internal Medicine Cardiovascular Disease; Visit Provider Internal Medicine Cardiovascular Disease
DX: R07.9 Chest pain, unspecified (principal); R94.39 Abnormal result of other cardiovascular function study; I25.10 Atherosclerotic heart disease of native coronary artery without angina pectoris; I10 Essential (primary) hypertension; E78.5 Hyperlipidemia, unspecified; Z95.5 Presence of coronary angioplasty implant and graft
CPT/HCPCS: 71046; 78452; 93017; A9500; A4216

== ENCOUNTER 2021-04-23 15:38 | Observation (INO) | payer OTHER, SELFPAY ==
[2021-04-22 11:44] LABS: Hemoglobin 13.3 g/dL (13.0-16.5); Mean Corp Hgb Conc 33.3 g/dL (32-36); Mean Corpuscular Hgb 30.2 pg (27.0-32.0); Mean Corpuscular Volume 90.9 fL (80-94); Mean Platelet Vol. 10.4 fl (6.2-12.0); Platelet Count 219 K/mm3 (150-450); RBC Distribution Width CV 12.9 % (11.6-14.6); RBC Distribution Width SD 43.2 fl (35.1-43.9); White Blood Count 7.4 K/mm3 (4.4-11.0)
[2021-04-22 12:30] LABS: Anion Gap 8 (5-15); BUN 15 mg/dL (7-18); BUN/Creat Ratio 16.6 RATIO (10-20); Calcium,Total 9.1 mg/dL (8.5-10.1); Chloride 104 mmol/L (98-107); EST Glomerular Filtration Rate 88 mL/min (>60); Est Glom Filt Rate - Afr Amer 107 mL/min (>60); Glucose 182 mg/dL (74-106); Potassium 3.9 mmol/L (3.5-5.1); Sodium Level 139 mmol/L (136-145)
[2021-04-23 06:45] VITALS: BMI 31.6
--- NOTE | 2021-04-23 07:51 | PCM.HP.BLA ---
History and Physical Date of Admission: 04/23/21 This is a 70-year-old gentleman that presents here today for a diagnostic heart catheterization. He underwent a stress test yesterday which demonstrated an abnormal exercise myocardial perfusion scan with evidence of lateral apical ischemia, basal inferolateral infarct noted, mild left ventricular systolic dysfunction and poor functional capacity. He was only able to walk 4 minutes and 31 seconds. At peak exercise he did have downsloping ST depression that was noted in leads II, III and aVF of approximately 1.7 mm which is suggestive of ischemia. He also had mild chest discomfort and shortness of breath. We have been working with patient for his uncontrolled blood pressure readings. He does have a history of coronary artery disease with angioplasty and stenting to his LAD in April 2008 and PCI to his RCA in May 2008. He also has a history of hypertension and hyperlipidemia. [facility] Medical History Prostate cancer (Chronic) Venous insufficiency of left leg (Chronic) Atherosclerosis of coronary artery of [place] heart without angina pectoris (Chronic) Essential (primary) hypertension (Chronic) Hyperlipidemia (Chronic) Obesity (Chronic) Surgical History History of coronary artery stent placement (Resolved 05/2008) Family History Father Heart disease Hypertension Mother CVA (cerebral vascular accident) Hypertension Social History (Updated 08/19/20 @ 09:[address] Son Tee MD) Smoking Status: Former smoker caffeine: Yes Type: coffee Number of servings: 1 ROS Const Const: negative for fatigue, weakness, headache(s), frequent falls, difficulty sleeping or excessive sweating Eyes Eyes: Negative for loss of peripheral vision, transient loss of vision, blurry vision, double vision or tunnel vision ENT ENT: Negative for headache(s), dizziness, Nosebleed/epistaxis or balance problems Cardio Chest Pain: Yes Palpitations: No Edema: None Muscle aches with walking: None Additional Details: Started on pletal and plavix per DKalie Martinez for LLE venous insufficiency Resp Respiratory: Negative for SOB with activity, SOB at rest, SOB orthopnea\SOB lying down, Cough or paroxysmal nocturnal dyspnea GI GI: Negative nausea, vomiting, heartburn or black,tarry stools : Negative for hematuria Musc Musc: Negative for muscle aches/ myalgia, muscle weakness, joint pain or balance problems Skin Skin: Negative non-healing lesions, rash or unusual bruising Neuro Neuro: Negative for dizziness, lightheadedness, near syncope, syncope, orthostatic symptoms, frequent falls, headache(s), weakness, blurry vision, double vision or lack of coordination Thierry Hematologic/Lymphatic: Negative for easy bleeding or easy bruising Endo Endo: Negative for fatigue, excessive sweating or increased thirst/drinking Psych Psych: Negative for anxiety or depression Allergy Allergy/Immunology: Negative for hives, Negative for rash Cardiology Exam Const Appearance: cooperative, healthy appearing, no acute distress, well developed and well groomed Nutritional Appearance: average body habitus and well nourished Orientation: alert, awake and oriented x3 Head Head: normal to inspection, normocephalic and atraumatic Ears: hearing grossly normal bilaterally and external ears normal Nose: external nose normal, nares normal, nasal mucous membranes and turbinates normal, septum normal, no nasal discharge Face and Sinus: face symmetric Mouth: oral mucosae normal, tongue normal, oropharynx normal and moist mucous membranes Teeth and gingiva: dentition normal Throat: posterior oropharynx normal, tonsils normal and uvula midline Eyes General: appearance normal, both eyes and all related structures Eyelids: eyelids normal Conjunctivae: conjunctivae normal Pupils: PERRL, normal by confrontation and accommodation normal EOM: EOM intact bilaterally Neck Neck: normal visual inspection, trachea midline and no JVD JVD: +5 Carotids: normal carotid upstroke and bounding pulses Chest Chest inspection: normal inspection of the chest, symmetric chest movement and normal respiratory effort Auscultation: Bilateral: Clear to Auscultation Cardio Palpation: normal PMI Rate: regular rate Rhythm: regular rhythm Heart sounds: S1 normal, S2 normal and normal, physiologic split S2; negative rub, gallop or murmur GI GI: normal to inspection, soft, no hepatosplenomegaly and bowel sounds present Neuro General: alert, awake, oriented x3, gait normal, moves all extremities and no focal sensory deficit Skin Skin: no rashes or lesions noted Extremities Pulses: Normal: Right Femoral Pulse, Left Femoral Pulse, Right Dorsalis Pedis Pulse, Left Dorsalis Pedis Pulse, Right Posterior Tibial Pulse, Left Posterior Tibial Pulse, Right Radial Pulse, Left Radial Pulse Lower Extremity Edema: None: Bilateral Musculoskel Musculoskeletal: No joint tenderness Psych Psychological: normal affect Assessment & Plan Assessment/Plan (1) Abnormal stress test: (2) Chest pain: (3) Atherosclerosis of coronary artery of [place] heart without angina pectoris: QUALIFIERS: Coronary Disease-Associated Artery/Lesion type: [place] artery Qualified Code(s): I25.10 - Atherosclerotic heart disease of [place] coronary artery without angina pectoris (4) Essential (primary) hypertension: (5) Hyperlipidemia: QUALIFIERS: Hyperlipidemia type: unspecified Qualified Code(s): E78.5 - Hyperlipidemia, unspecified PLAN: Patient will undergo a diagnostic heart catheterization for his abnormal stress test. And of care will be based upon findings.
--- NOTE | 2021-04-23 08:33 | CL.D_ITS ---
Patient Name: YOSI GUTIERREZ Study Date: 04/23/2021 Performing: Son Tee MD Ht: 70.86 inches 180 cm : 1950 Wt: 227.08 lbs 103 kg Age: 70 Gender: male BSA: 2.22 PROCEDURE(S) PERFORMED RO46-UBJ/COR/LV CLINICAL PROFILE AND INDICATIONS Indications: Suspected CAD Heart Failure: None Stress/Imaging Date: 04/22/21ress Test with SPECT MPI: Positive High Risk CAD Presentations: Unstable angina. CONCLUSIONS Severe two-vessel disease involving the proximal ramus intermedius as well as the proximal and mid ri ght coronary artery. RECOMMENDATIONS We will consider multivessel PCI DESCRIPTION OF PROCEDURE The patient arrived to the procedure lab. The risks and benefits of the procedure as well as a full d escription of our services here and current unavailability of surgical backup were fully explained to the patient and/or their significant other prior to the catheterization. The Timeout was completed, verifying the correct patient and procedure. The patient's procedural site was prepped and draped in the usual fashion. Local anesthetic was given subcutaneously to right radial region with Lidocaine 2% . Using a modified Seldinger technique, arterial access was obtained via the right radial artery, a 6 Fr sheath was inserted. Left Coronary Artery selective angiography was performed in multiple views u sing a 5 Fr. 4.0 [place] catheter. Right Coronary Artery selective angiography was then performed in mu ltiple views using a 5 Fr. 4.0 [place] catheter. Left Ventriculography was performed in HAWKINS projection using a 5 Fr. Pigtail catheter. LV to AO pullback pressures were then recorded. CORONARY ANGIOGRAPHY DOMINANCE: Right Dominant LEFT HEART ASSESSMENT Left Ventricular Ejection Fraction: by LV Gram 60 % Normal LV wall motion Normal Left Ventricular systolic function LEFT MAIN: Angiographically normal LEFT ANTERIOR DESCENDING ARTERY: PROX LAD: Previously placed stent has an instent 40 % restenosis CIRCUMFLEX ARTERY: No significant disease noted RAMUS: Proximal 95% stenosis RIGHT CORONARY ARTERY: Previously stented vessel with in-stent stenosis of 90% in the proximal and mi d segments. COMPLICATIONS PROCEDURE MEDICATIONS Versed 1 mg IV Fentanyl 50 mcg IV Versed 1 mg IV Oxygen: 2 L/min via nasal cannula Heparin given IA 04/23/2021 07:59:26 Heparin 7000 unit(s) IV 04/23/2021 08:26:30 Verapamil 2.5mg, Ntg 100mcgs, 3000 units of Heparin given IA 04/23/2021 07:59:26 IV Bolus: .9 NaCl ml total 04/23/2021 08:02:29 SUMMARY OF HEMODYNAMIC DATA Time AIR REST ECG 07:06:08 AO 98/66 (80) SA 07:59:23 LV 110/5, 7 08:07:30 LV 101/3, 6 08:07:37 LV 97/4, 11 08:08:27 LV 93/8, 15 08:08:33 LVp 0/-1, -1 08:08:38 AOp 100/61 (79) 08:08:43 Signed By Son Tee MD On 04/23/2021 08:33:10 Son Tee MD
--- NOTE | 2021-04-23 09:58 | CRPHASE1_ITS ---
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 Cardiac Rehabilitation Info Cardiac Rehabilitation Program Information: Cardiac Rehabilitation is important for patients like you who are recovering from a heart problem. Cardiac rehabilitation programs are recognized as integral to the continued care of the patient with coronary heart disease. The cardiac rehabilitation program is designed to optimize a patient's physical, psychological, and social functioning. Health career services representative work in cardiac rehabilitation programs and assist you with getting the treatments you need to get stronger and healthier - like exercise, healthy eating habits, and medications. Cardiac rehabilitation has been show to help people with heart problems live longer and have better life enjoyment than people who do not go to cardiac rehabilitation. Please contact the Cardiac Rehabilitation Program at [facility] at in two weeks if you have not heard from them.
--- NOTE | 2021-04-23 09:59 | CRPH1.INSTRU ---
General Education CAD and cardiac anatomy and function:: Patient communicates acknowledgment Explanation of diagnoses and procedures:: Patient communicates acknowledgment Sign/Symptoms of OH:: Patient communicates acknowledgment Antiplatelet therapy: Patient communicates acknowledgment Smoking Patient Nicotine/Smoking Risk Factors Are:: Non-smoker Recommendations Include:: Previous smoker; encourage continued cessation Nicotine/Smoking Response Code:: Patient communicates acknowledgment Dyslipidemia Patient Dyslipidemia Risk Factors Are:: Total Cholesterol, Triglycerides, HDL, LDL Recommendations Include:: Lipid profile provided, Reviewed NCEP/ATP guidelines, Therapeutic Lifestyle Change dietary guidelines Dyslipidemia Response Code:: Patient communicates acknowledgment Overweight/Obesity Patient Overweight/Obesity Risk Factors Are:: Obesity - > or = 30 Recommendations Include:: Weight loss of 5-10%, Reduced calorie diet, Exercise 5-7 times/week Overweight/Obesity:: Patient communicates acknowledgment Hypertension Recommendations Include:: Maintain BP <130/85, DASH dietary guidelines, Decrease/maintain normal body weight, Moderation of ETOH Hypertension:: Patient communicates acknowledgment Heart Disease Patient Heart Disease Risk Factors Are:: Family history of heart disease < 65 years old, Previous cardiac event Recommendations Include:: Educated family members of their risk, Educated family members of importance of prevention of heart disease Heart Disease Response Code:: Patient communicates acknowledgment Diabetes Patient Diabetes Risk Factors Are:: No documented hx of diabetes Metabolic Syndrome Patient Metabolic Syndrome Risk Factors Are [3 of 5]:: Fasting blood sugar > 100 mg/dL, Waist circumference > 35 [female] or 40 [male], High triglyceride >150, Hypertension, Low HDL <40 [male] or < 50 [female] Recommendations Include:: Reinforce compliance to risk factor modifications, Encouraged follow-up with Primary Care Physician Metabolic Syndrome Response Code:: Patient communicates acknowledgment Sedentary Patient Sedentary Risk Factors Are:: Lack of regular exercise Recommendations Include:: Aerobic exercise 5-7 times/week for 20-30 minutes continuously, Benefits of regular exercise, Discussed home walking program, Monitored Outpatient Cardiac Rehab Sedentary Response Code:: Patient communicates acknowledgment Stress Recommendations Include:: Identification of stressors, and assessment of coping skills, Stress management techniques Stress Response Code:: Patient communicates acknowledgment
--- NOTE | 2021-04-23 10:06 | PCIREPORT_ITS ---
PCI Cardiac Cath Report PCI Report: 1. Successful PCI of proximal ramus intermedius with predilatation using 2 x 12 mm emerge MR balloon, followed by placement of drug-eluting stent/Orsiro 3 x 18 mm With reduction of stenosis from 90% to 0%. KRYSTIN-3 flow pre and post procedure. 2. Successful PCI of 90% proximal and mid RCA in-stent restenosis with predilatation using 2.5 x 20 mm NC balloon/emerge followed by placement of drug- eluting stent 2.75 x 35 mm Orsiro, followed by postdilatation using 3 x 20 mm NC image MR balloon. With reduction of stenosis from 90% to 0%, KRYSTIN-3 flow pre and post procedure. 3. Placement of TR band to close the right radial artery arteriotomy site. Preprocedure diagnosis; 70-year-old patient with known history of CAD, 2007 patient had a PCI and stent of the left anterior descending artery as well as RCA by Dr. Otto Jiménez Patient seen and evaluated by his primary engagement lead Dr. Tee, underwent exercise marker perfusion study which is abnormal with evidence of lateral and apical myocardial ischemia LV systolic function has been preserved. Cardiac catheterization performed by Dr. Tee and I reviewed the angiographic views in detail and discuss the plan of intervention with the patient and his primary engagement lead Left main patent, proximal and mid LAD stent had no significant in-stent restenosis in the left circumflex had no significant atherosclerosis Patient had high-grade 90% proximal ramus intermedius stenosis and had segmental in-stent restenosis of the proximal and mid RCA. Patient remained stable hemodynamically. Consent; Risk and benefit of the procedure explained detail informed consent obtained and placed in the chart Interventional equipment and plan; 1. 6 Mongolian 3.5 EBU guide catheter 2. 6 Mongolian JR4 guide 3. 0.014 BMW universal straight 190 cm 4. 0.014 run-through extra floppy 180 cm straight 5. 0.035 to 60 cm J exchange wire 6. 2 x 12 mm image MR balloon 7. 2.5 x 12 mm Emerge balloon 8. 3 x 18 mm drug-eluting stent/Orsiro 9. 2.75 x 35 mm drug-eluting stent/Orsiro 10. 3 x 20 mm NC image MR balloon. Medication used in the Bank Operations Officer; 1. Patient was given 180 mg of Brilinta 2. 7000 units of heparin was given ACT was lower than 250 additional 2000 units of heparin was given 3. 2 bolus of Integrilin followed by Integrilin infusion. Procedure in detail; We will proceed with 6 Mongolian 3.5 EBU guide, under fluoroscopic guidance cannulated the left main coronary artery and angiographic view obtained in the HAWKINS caudal and spider view, identified the high-grade stenosis of the ramus intermedius, then will proceed with 0.014 run-through extra floppy 180 cm straight wire, predilated the lesion with the 2 x 12 mm balloon followed by placement of drug-eluting stent 3 x 18 up to 14 OLMAN and achieved an excellent result with no evidence of proximal or distal dissection and reduction of stenosis from 90% to 0% with maintenance of KRYSTIN-3 flow in the ramus intermedius. Following this we exchanged for a 6 Mongolian JR4 guide, engaged the right coronary ostium without difficulty and angiographic view obtained, this is followed by predilatation using 2.5 x 20 mm NC Emerge balloon to the segmental mid and proximal RCA in-stent restenosis, followed by placement of drug-eluting stent 2.75 x 35 mm Orsiro, followed by postdilatation using 3 x 20 mm NC balloon and achievement of excellent result with reduction of stenosis from 90% to 0% and maintenance of KRYSTIN-3 flow. Following this all catheters removed, hemostasis maintained with placement of TR band to the right radial artery arteriotomy site with no complication in the Bank Operations Officer. Patient remained stable hemodynamically with no change in the compliance monitor and he had no symptoms of chest pain at the end of the procedures. Conclusion; Successful PCI of proximal ramus intermedius and dominant RCA as described Recommendation and plan; 1. Patient to continue on DAPT with Brilinta 90 mg twice daily in addition to low-dose aspirin for 1 year 2. Patient to follow-up with her primary engagement lead Dr. Tee for continuation of cardiac care plan. 3. I scheduled the patient for phase 1 cardiac rehab. Elmer Smith MD,[facility]
--- NOTE | 2021-04-23 10:50 | STRESSREP ---
Stress Test Report Treadmill myocardial perfusion stress test. Indication; 64-year-old patient with history of hypertension, hyperlipidemia, hypothyroidism and history of hiatal hernia She had symptoms of chest pain. And she has a prior evaluation with the stress echocardiogram. Treadmill myocardial perfusion study; Patient exercised according to standard Vern protocol, for total of 6 minutes, achieving a work level of max METS of 7.0 The resting heart rate of 96 bpm, sary to a maximum heart rate of 153 bpm. This value represented 97% of the maximal age-predicted heart rate. The resting blood pressure of 158/90 mmHg, sary to a maximal blood pressure of 180/74 mmHg. Exercise test was stopped due to target heart rate achieved and symptoms of dyspnea also she had some epigastric and abdominal pain. Resting EKG reveals normal sinus rhythm. Stress EKG showed diffuse ST depression of at least 1 mm Arrhythmia: No arrhythmia demonstrated Myocardial perfusion protocol. [12 mCi ]of Technetium 99m Sestamibi was injected at rest. Following maximal stress, [34 0.2 mCi ]of Technetium 99m sestamibi was injected. Stress images were obtained stress and rest images were reconstructed and compared in the short axis vertical and horizontal long axis. Gated images were also obtained Perfusion SPECT analysis: Review of the images demonstrate normal uptake of sestamibi at rest, post stress images demonstrate similar uptake of sestamibi to the resting images, homogeneous tracer uptake With no evidence of reversible myocardial ischemia. Gated SPECT analysis: The gated ejection fraction is [ 89 %]. Wall motion showed hyperdynamic left ventricle. Conclusion: Negative treadmill sestamibi myocardial perfusion study for reversible myocardial ischemia/by scintigraphic views Hyperdynamic left ventricle. Patient has change in the EKG of diffuse ST depression of at least 1 mm, which persisted in recovery Elmer Smith MD,FACC,[facility] [place]
[2021-04-23 14:19] VITALS: BMI 31.0
[2021-04-23 14:21] VITALS: BP 144/96; PULSE 88; RESP 16; TEMP 36.8; O2SAT 97
[2021-04-23 14:30] VITALS: O2SAT 97
--- NOTE | 2021-04-23 14:38 | PCS.PANDOC ---
PANDEMIC DOCUMENTATION INITIATED: Date: 02/09/2021 Time: 190
[2021-04-23] MEDS: 0.9% Normal Saline 1,000 ML 150 ML IV (14:50)
[2021-04-23 15:12] VITALS: PULSE 83
[2021-04-23 15:37] VITALS: BP 132/95; PULSE 86; RESP 16; TEMP 36.8; O2SAT 99
[2021-04-23] MEDS: Acetaminophen 325 MG Tablet 650 MG PO (17:22)
[2021-04-23] MEDS: Cholecalciferol (VIT D3) 25 MCG TABLET (1,000 UNITS) PO (17:22)
[2021-04-23 18:34] LABS: Hematocrit 38.7 % (40-54); Hemoglobin 13.3 g/dL (13.0-16.5); Mean Corp Hgb Conc 34.4 g/dL (32-36); Mean Corpuscular Hgb 30.3 pg (27.0-32.0); Mean Corpuscular Volume 88.2 fL (80-94); Mean Platelet Vol. 10.2 fl (6.2-12.0); Platelet Count 218 K/mm3 (150-450); RBC Distribution Width CV 12.9 % (11.6-14.6); Red Blood Count 4.39 M/mm3 (4.6-6.2); White Blood Count 6.8 K/mm3 (4.4-11.0)
[2021-04-23 19:03] VITALS: PULSE 90
[2021-04-23 21:37] VITALS: BP 125/87; PULSE 85; RESP 16; TEMP 36.6; O2SAT 98
[2021-04-23] MEDS: Carvedilol 6.25 MG Tablet PO (21:41)
[2021-04-23] MEDS: Atorvastatin Calcium 40 MG Tablet PO (21:41)
[2021-04-24] VITALS (7 sets, daily range): BP systolic 132–134; BP diastolic 79–89; PULSE 69–96; RESP 16–18; TEMP 36.3–36.9; O2SAT 97
[2021-04-24] MEDS: Acetaminophen 325 MG Tablet 650 MG PO (01:37)
[2021-04-24 06:25] LABS: Absolute Lymphocyte Count 1.04 X10^3/uL (0.83-4.51); Absolute Neutrophil Count 3.8 X10^3/uL (2.0-7.7); Basophil# 0.02 X10^3/uL; Basophil% 0.3 % (0-1); Eosinophils% 5.2 % (0-5); Hematocrit 38.4 % (40-54); Hemoglobin 13.1 g/dL (13.0-16.5); Lymphocyte # 1.04 X10^3/ul (0.83-4.51); Lymphocyte % 17.9 % (19-41); Mean Corp Hgb Conc 34.1 g/dL (32-36); Mean Corpuscular Hgb 30.4 pg (27.0-32.0); Mean Corpuscular Volume 89.1 fL (80-94); Mean Platelet Vol. 10.5 fl (6.2-12.0); Monocyte# 0.62 X10^3/uL; Monocyte% 10.7 % (0-10); NRBC Flagged by Analyzer 0 % (0-5); Neutrophil # 3.81 X10^3/uL (2.7-7.7); Neutrophil % 65.4 % (47-70); Platelet Count 210 K/mm3 (150-450); RBC Distribution Width CV 12.9 % (11.6-14.6); RBC Distribution Width SD 42.5 fl (35.1-43.9); Red Blood Count 4.31 M/mm3 (4.6-6.2); White Blood Count 5.8 K/mm3 (4.4-11.0)
[2021-04-24 06:52] LABS: ALB/GLOB Ratio 0.9 RATIO (0.9-2.4); AST(SGOT) 24 U/L (15-37); Alanine Aminotransfer ALT/SGPT 36 U/L (16-61); Alkaline Phosphatase 82 U/L (45-117); Anion Gap 6 (5-15); BUN 16 mg/dL (7-18); BUN/Creat Ratio 18.5 RATIO (10-20); Calcium,Total 8.3 mg/dL (8.5-10.1); Chloride 108 mmol/L (98-107); Creatinine, Serum 0.87 mg/dL (0.70-1.30); EST Glomerular Filtration Rate 93 mL/min (>60); Est Glom Filt Rate - Afr Amer 112 mL/min (>60); Estimated Creatinine Clearance 85.35 ml/min; Globulin 3.5 g/dL (2.2-4.2); Glucose 108 mg/dL (74-106); Potassium 3.8 mmol/L (3.5-5.1); Protein, Total 6.5 g/dL (6.4-8.2); Sodium Level 140 mmol/L (136-145)
--- NOTE | 2021-04-24 08:47 | PN.CARD_ITS ---
Subjective Subjective Patient seen and evaluated Objective Data Vital Signs: Vital Signs Temp Pulse Resp BP Pulse Ox 97.4 F L 96 18 134/84 H 97 04/24/21 03:06 04/24/21 07:45 04/24/21 03:06 04/24/21 03:06 04/24/21 07:47 Oxygen Delivery Method Room Air Weight: 222 lb 9 oz Body Mass Index (BMI) 31.0 Intake & Output: Intake and Output for Last 24 Hours 04/22/21 04/23/21 04/24/21 23:59 23:59 23:59 Intake Total 555.35 / 1035.35 1569.93 / 1569.93 Output Total 300 / 950 650 / 650 Balance 255.35 / 85.35 919.93 / 919.93 Lab / Micro Data Result Diagrams: 04/24/21 05:35 04/24/21 05:35 Labs: Laboratory Results - last 24 hr 04/23/21 18:24: WBC 6.8, RBC 4.39 L, Hgb 13.3, Hct 38.7 L, MCV 88.2, MCH 30.3, MCHC 34.4, RDW Std Deviation 42.0, RDW Coeff of Nathan 12.9, Plt Count 218, MPV 10.2 04/24/21 05:35: WBC 5.8, RBC 4.31 L, Hgb 13.1, Hct 38.4 L, MCV 89.1, MCH 30.4, MCHC 34.1, RDW Std Deviation 42.5, RDW Coeff of Nathan 12.9, Plt Count 210, MPV 10.5, Immature Gran % (Auto) 0.500, Neut % (Auto) 65.4, Lymph % (Auto) 17.9 L, [place] % (Auto) 10.7 H, Eos % (Auto) 5.2 H, Baso % (Auto) 0.3, Absolute Neuts (auto) 3.8, Absolute Lymphs (auto) 1.04, Nucleated RBC % 0 04/24/21 05:35: Sodium 140, Potassium 3.8, Chloride 108 H, Carbon Dioxide 26.0, Anion Gap 6, BUN 16, Creatinine 0.87, Estim Creat Clear Calc 85.35, Est GFR (MDRD) Af Amer 112, Est GFR (MDRD) Non-Af 93, BUN/Creatinine Ratio 18.5, Glucose 108 H, Calcium 8.3 L, Total Bilirubin 0.40, AST 24, ALT 36, Alkaline Phosphatase 82, Total Protein 6.5, Albumin 3.0 L, Globulin 3.5, Albumin/Globulin Ratio 0.9 Cardiology Labs/Tests 04/23/21 18:24: WBC 6.8, RBC 4.39 L, Hgb 13.3, Hct 38.7 L, MCV 88.2, MCH 30.3, MCHC 34.4, Plt Count 218, MPV 10.2 04/24/21 05:35: WBC 5.8, RBC 4.31 L, Hgb 13.1, Hct 38.4 L, MCV 89.1, MCH 30.4, MCHC 34.1, Plt Count 210, MPV 10.5, Immature Gran % (Auto) 0.500, Neut % (Auto) 65.4, Lymph % (Auto) 17.9 L, [place] % (Auto) 10.7 H, Eos % (Auto) 5.2 H, Baso % (Auto) 0.3, Absolute Neuts (auto) 3.8, Nucleated RBC % 0 04/24/21 05:35: Sodium 140, Potassium 3.8, Chloride 108 H, Carbon Dioxide 26.0, Anion Gap 6, BUN 16, Creatinine 0.87, Est GFR (MDRD) Af Amer 112, Est GFR (MDRD) Non-Af 93, BUN/Creatinine Ratio 18.5, Glucose 108 H, Calcium 8.3 L, Total Christo irubin 0.40 Rhythm: EKG: ECHO: Stress Test: Cardiac Cath: PCI: CT Surgery: Holter monitor: EPS: PPM: CXR: Chest CT Scan: Physical Exam Const alert, oriented x3 and no apparent distress General Appearance: cooperative HEENT hearing grossly normal bilaterally Head and Scalp: atraumatic Eyes EOMs intact bilaterally Neck General: normal visual inspection Chest inspection of chest normal and palpation of chest normal Resp normal respiratory effort Auscultation: clear to auscultation bilaterally Cardio regular rate, regular rhythm, S1 normal heart sound and S2 normal heart sound Jugular Venous Distention: JVD GI normal to inspection, nondistended, normoactive bowel sounds Extremity normal capillary refill and no pedal edema Peripheral Pulses: Yes pulses 2+ throughout and femoral pulses present Skin no rashes or lesions noted Neuro oriented x3 and CN's II-XII intact bilaterally Psych Appearance: grossly normal and appropriate Assessment & Plan Assessment/Plan (1) History of coronary artery stent placement: PLAN: He is status post angioplasty and stent placement of the right coronary artery as well as the ramus intermedius he is doing quite well this mor bimal I would not recommend that we make any changes. (2) Essential (primary) hypertension: PLAN: His blood pressure is under good control continue current medical therapy.
--- NOTE | 2021-04-24 08:51 | PCM.DC ---
Discharge Instructions Follow Up Care Test Results: Test results from this visit will be discussed in further detail at your follow-up appointment, if applicable. Discharge Plan Admission Admit Date/Time: 04/23/21 15:38 Attending Provider: Son Tee Primary Care Provider: Enmanuel Bowles Discharge Orders/Prescriptions Prescriptions: New Brilinta 90 mg Tablet 90 mg PO BID Qty: 180 RF: 3 Continued rosuvastatin 20 mg tablet 20 mg PO DAILY Qty: 90 RF: 3 aspirin [Adult Aspirin Regimen] 81 mg tablet,delayed release (DR/EC) 81 mg PO DAILY RF: 0 omega-3 fatty acids-fish oil [Fish Oil] 360-1,200 mg capsule 1 cap PO DAILY RF: 0 cyanocobalamin (vitamin B-12) 1,000 mcg capsule 1,000 mcg PO DAILY RF: 0 cholecalciferol (vitamin D3) 25 mcg (1,000 unit) capsule 25 mcg PO BID RF: 0 ljwmjulm-rywt-hyd8-C-lakeisha-bosw 500-416.6-20 mg tablet 2 tab PO DAILY RF: 0 lisinopril 20 mg tablet 40 mg PO DAILY Qty: 1 RF: 6 calcium carbonate 500 mg calcium (1,250 mg) tablet 500 mg PO DAILY RF: 0 amlodipine 5 mg tablet 10 mg PO DAILY Qty: 0 RF: 0 nitroglycerin 0.4 mg tablet, sublingual 0.4 mg sublingual Q5-15M PRN (Reason: chest pain) Qty: 25 RF: 3 carvedilol [Coreg] 6.25 mg tablet 6.25 mg PO BID Qty: 180 RF: 3 Referrals / Follow Up: Enmanuel Bowles MD [Primary Care Provider] - Disposition Disposition (needs filled in before D/C Order can be placed): Home, Self Care
--- NOTE | 2021-04-24 10:00 | EKG12_ITS ---
Test Reason : AM EKG Blood Pressure : / mmHG Vent. Rate : 072 BPM Atrial Rate : 072 BPM P-R Int : 176 ms QRS Dur : 090 ms QT Int : 418 ms P-R-T Axes : 044 018 -18 degrees QTc Int : 457 ms Normal sinus rhythm Nonspecific ST and T wave abnormality Abnormal ECG Confirmed by RONNA NORRIS, GASPER ([id number]), business editor SLADE STARR ([id number]) on 04/24/2021 1:54:29 PM Referred By: Son Tee Confirmed By:GASPER FRIEND MD
--- NOTE | 2021-04-24 10:12 | CASEMGMT ---
Pt to be sent home on Brilinta at discharge and med e-scribed to [facility] previously. Call to [facility] and per tech for 90 supply, pt's cost is $45. Pt updated and provided a Brilinta co-pay card. Pt voices no further questions/concerns/needs. Violet DOUGLASS CM
--- NOTE | 2021-04-24 10:48 | PHA.DC.MC ---
Pharmacy Service has performed discharge medication reconciliation and counseling for this patient. 1. TICAGRELOR 90MG PO BID The patient's discharge medication list was reviewed for discrepancies and discrepancies were resolved. Home Medications aspirin 81 mg tablet,delayed release 81 mg PO DAILY 03/23/18 omega-3 fatty acids-fish oil 360 mg-1,200 mg capsule 1 cap PO DAILY 03/23/18 rosuvastatin 20 mg tablet 20 mg PO DAILY #90 tab 05/12/18 cyanocobalamin (vitamin B-12) 1,000 mcg capsule 1,000 mcg PO DAILY 08/19/20 lisinopril 20 mg tablet 40 mg PO DAILY #1 tab 11/18/20 calcium carbonate 500 mg calcium (1,250 mg) tablet 500 mg PO DAILY 02/02/21 amlodipine 5 mg tablet 10 mg PO DAILY #0 tab 02/12/21 nitroglycerin 0.4 mg sublingual tablet 0.4 mg SUBLINGUAL Q5-15M PRN #25 tab 02/16/21 carvedilol 6.25 mg tablet 6.25 mg PO BID #180 tab 03/23/21 cholecalciferol (vitamin D3) 25 mcg (1,000 unit) capsule 25 mcg PO BID cap 04/06/21 glucosamine 500 ok-wveruvxxs-qhw no1 416.6 mg-C 20 fg-uexi-fbks tablet 2 tab PO DAILY tab 04/06/21 ticagrelor [Brilinta] 90 mg PO BID #180 tab 04/24/21 The patient was counseled on the following discharge medications and changes in medications for homegoing were reviewed. The Reason for Use, instructions for use, and potential side effects were reviewed for all new medications. The patient's questions regarding all of their medications were answered. The patient was able to verbally demonstrate an understanding of their discharge medications.
[2021-04-24] MEDS: Aspirin E.C. 81 MG Tablet PO (11:13)
[2021-04-24] MEDS: Carvedilol 6.25 MG Tablet PO (11:14)
[2021-04-24] MEDS: amLODIPine 10 MG Tablet PO (11:14)
[2021-04-24] MEDS: Calcium (Elemental) 500 MG Tablet PO (11:14)
[2021-04-24] MEDS: Lisinopril 40 MG Tablet PO (11:15)
[2021-04-24] MEDS: TICAGRELOR 90 MG TABLET PO (11:15)
[2021-04-24] MEDS: Cyanocobalamin 500 MCG Tablet 1000 MCG PO (11:15)
[2021-04-24] MEDS: Cholecalciferol (VIT D3) 25 MCG TABLET (1,000 UNITS) PO (11:15)
== END 2021-04-24 08:50 | disposition home or self-care (01) ==
LOC: CLSP 16:42 → PCU 16:42
PROVIDERS: Internal Medicine Interventional Cardiology; Admitting Provider Internal Medicine Cardiovascular Disease; PCP Family Medicine; Referring Provider Internal Medicine Cardiovascular Disease; Visit Provider Internal Medicine Cardiovascular Disease
DX: I25.110 Atherosclerotic heart disease of native coronary artery with unstable angina pectoris (principal); E78.5 Hyperlipidemia, unspecified; I10 Essential (primary) hypertension; E66.9 Obesity, unspecified; Z68.31 Body mass index [BMI] 31.0-31.9, adult; Z79.899 Other long term (current) drug therapy; Z79.82 Long term (current) use of aspirin; Z87.891 Personal history of nicotine dependence; Z95.5 Presence of coronary angioplasty implant and graft; T82.855A Stenosis of coronary artery stent, initial encounter; Y71.8 Miscellaneous cardiovascular devices associated with adverse incidents, not elsewhere classified
CPT/HCPCS: 36415; 80048; 80053; 85025; 85027; 92920; 92928; 93005; 93458; 96361; 96365; 96366; 99152; 99153; 99218; 99406; C1874; J7030; J7040; Q9967; C1725; C1769; C1887; C1894; C9600; G0378; J1327

== ENCOUNTER → 2021-06-09 09:12 | Outpatient (CLI) | payer OTHER, SELFPAY ==
[2021-06-09 11:08] LABS: PSA,Total- Diagnostic 0.01 ng/mL (0.0-4.0)
== END ==
PROVIDERS: PCP Family Medicine; Referring Provider Urology; Visit Provider Urology
DX: C61 Malignant neoplasm of prostate (principal)
CPT/HCPCS: 36415; 84153

== ENCOUNTER 2021-07-13 15:58 | Outpatient (CLI) | payer OTHER, SELFPAY ==
--- NOTE | 2021-07-13 16:02 | RAD_ITS ---
STUDY: X-RAY - LEFT SHOULDER REASON FOR EXAM: Male, 70 years old. PAIN TECHNIQUE: 4 view(s) of the shoulder. COMPARISON: None. FINDINGS: There is severe degenerative arthrosis of the glenohumeral articulation. There is degenerative arthrosis of the acromioclavicular joint without inferior osseous spur formation. Normal acromion. Normal humeral head and visualized proximal humerus. The soft tissue structures are unremarkable. Normal visualized pulmonary apex. RAD/Shoulder min 2 Views IMPRESSION: Significant degenerative changes without acute findings Electronically Signed: Burak Marshall DO at 1:16 EST Tel , Service support ,
== END 2021-07-13 23:59 | disposition short-term general hospital (02) ==
LOC: MTRAD 15:59
PROVIDERS: PCP Family Medicine; Referring Provider Family Medicine; Visit Provider Family Medicine
DX: M25.512 Pain in left shoulder (principal)
CPT/HCPCS: 73030

== ENCOUNTER → 2022-01-01 | Outpatient (CLI) | payer MEDICARE, SELFPAY ==
[2022-01-01 10:17] LABS: Absolute Lymphocyte Count 1.15 X10^3/uL (0.83-4.51); Absolute Neutrophil Count 4.1 X10^3/uL (2.0-7.7); Basophil# 0.04 X10^3/uL; Basophil% 0.6 % (0-1); Eosinophil# 0.35 X10^3/uL; Eosinophils% 5.5 % (0-5); Erythrocyte Sedimentation Rate 18 mm/hr (0-20); Hematocrit 39.5 % (40-54); Lymphocyte # 1.15 X10^3/ul (0.83-4.51); Mean Corp Hgb Conc 32.9 g/dL (32-36); Mean Corpuscular Volume 94.3 fL (80-94); Mean Platelet Vol. 10.9 fl (6.2-12.0); Monocyte# 0.68 X10^3/uL; Monocyte% 10.7 % (0-10); NRBC Flagged by Analyzer 0 % (0-5); Neutrophil # 4.13 X10^3/uL (2.7-7.7); Neutrophil % 64.7 % (47-70); Platelet Count 258 K/mm3 (150-450); RBC Distribution Width CV 13.8 % (11.6-14.6); RBC Distribution Width SD 47.5 fl (35.1-43.9); Red Blood Count 4.19 M/mm3 (4.6-6.2); White Blood Count 6.4 K/mm3 (4.4-11.0)
[2022-01-01 10:54] LABS: ALB/GLOB Ratio 1.1 RATIO (0.9-2.4); AST(SGOT) 25 U/L (15-37); Alanine Aminotransfer ALT/SGPT 31 U/L (16-61); Albumin, Serum 3.9 g/dL (3.2-5.0); Alkaline Phosphatase 85 U/L (45-117); BUN 16 mg/dL (7-18); BUN/Creat Ratio 17.7 RATIO (10-20); Chloride 108 mmol/L (98-107); Cholesterol 155 mg/dL (200); EST Glomerular Filtration Rate 88 mL/min (>60); Est Glom Filt Rate - Afr Amer 107 mL/min (>60); Globulin 3.6 g/dL (2.2-4.2); Glucose 117 mg/dL (74-106); Potassium 3.9 mmol/L (3.5-5.1); Protein, Total 7.5 g/dL (6.4-8.2); Sodium Level 140 mmol/L (136-145); Triglycerides 124 mg/dL
[2022-01-01 10:55] LABS: Anion Gap 6 (5-15); High Density Lipoprotein 48 mg/dL; Thyroid Stim Hormone (TSH) 2.07 uIU/mL (0.358-3.74); Very Low Density Lipoprotein 25 mg/dL (5-40)
[2022-01-02 09:01] LABS: Vitamin B12 1015 pg/mL (211-911); Vitamin D,25 Hydroxy 37.4 ng/mL
== END | disposition home or self-care (01) ==
PROVIDERS: PCP Family Medicine; Visit Provider Family Medicine
DX: R53.83 Other fatigue (principal); I25.10 Atherosclerotic heart disease of native coronary artery without angina pectoris
CPT/HCPCS: 36415; 80053; 80061; 82306; 82607; 84443; 85025; 85652

== ENCOUNTER → 2022-02-16 | Outpatient (CLI) | payer MEDICARE, SELFPAY ==
--- NOTE | 2022-02-16 10:56 | ART_ITS ---
[id number] VL^ARNOLD^Ankle Brachial Index [id number] Reason For Study: Atherosclerosis Procedure A bilateral lower extremity continuous wave Doppler with analog waveform analysis and ankle brachial indexes. Left Segmental Pressures Left brachial= 131mmHg. Left posterior tibial artery = 106mmHg. Left dorsalis pedis artery = 87mmHg. The left dorsalis pedis waveforms are monophasic. The left posterior tibial artery waveforms are monophasic. Right Segmental Pressures Right brachial= 131mmHg. Right posterior tibial artery = 153mmHg. Right dorsalis pedis artery = 146mmHg. The right dorsalis pedis waveforms are triphasic. The right posterior tibial artery waveforms are triphasic. Indices The right ankle brachial index by the dorsalis pedis is 1.11. The right ankle brachial index by the posterior tibial artery is 1.17. The left ankle brachial index by the dorsalis pedis is 0.66. The left ankle brachial index by the posterior tibial artery is 0.81. VL/Ankle Brachial Index Interpretation Summary Right lower extremity with no evidence of significant occlusive disease at rest with triphasic flow and an ARNOLD 1.17. Left lower extremity with mild occlusive disease and a more bi phasic to monophasic waveform and an ARNOLD 0.81. Ordering Physician: Wong Martinez Referring Physician: Mark Bowles MD Performed By: Cecy Sequeira RVT
== END | disposition home or self-care (01) ==
PROVIDERS: PCP Family Medicine; Referring Provider Surgery Vascular Surgery; Visit Provider Surgery Vascular Surgery
DX: I70.212 Atherosclerosis of native arteries of extremities with intermittent claudication, left leg (principal); I72.4 Aneurysm of artery of lower extremity
CPT/HCPCS: 93922

== ENCOUNTER → 2022-07-23 | Outpatient (CLI) | payer MEDICARE, SELFPAY ==
--- NOTE | 2022-07-23 08:07 | CT_ITS ---
STUDY: CT LEFT SHOULDER REASON FOR EXAM: Male, 71 years old. PREOP SHOULDER BLUEPRINT PROTOCOL RADIATION DOSAGE (If Supplied By Facility): CTDIvol = ( 29.59 ) mGy, DLP = ( 798.56 ) mGycm TECHNIQUE: The patient was scanned in a multi detector CT scanner. High resolution transaxial imaging was performed without the administration of intravenous contrast material. Sagittal and coronal images were reconstructed. Individualized dose optimization techniques were used for this CT. COMPARISON: Comparison is made with prior radiographs of the left shoulder dated 01/10/2022. FINDINGS: There is severe osteoarthritis, with severe articular joint space narrowing, osteoarthritic spurring, articular remodeling, and with articular erosions. There is also evidence of a large degenerative spur along the anterior aspect of the glenoid. This causes impingement of the shoulder joint. There is evidence of a degenerative spur formation along the medial aspect of the humeral head. Normal coracoid process. Normal visualized lateral clavicle. There is moderate osteoarthritis with articular joint space narrowing and with osteoarthritic spurring. There is a Type II morphology (curved), with a neutral orientation. Calcific tendinitis. CT/Extremity Upper without Contra IMPRESSION: Moderate degree of the osteoarthritis of the glenohumeral joint with the evidence of large degenerative spurs as described. Electronically Signed: Sim Earl MD at 13:19 EST ,
== END | disposition home or self-care (01) ==
PROVIDERS: PCP Family Medicine; Visit Provider Student in an Organized Health Care Education/Training Program
DX: M19.012 Primary osteoarthritis, left shoulder (principal); M25.512 Pain in left shoulder
CPT/HCPCS: 73200

== ENCOUNTER → 2022-07-30 | Outpatient (CLI) | payer MEDICARE, SELFPAY ==
[2022-07-30 15:56] LABS: PSA,Total- Diagnostic < 0.01 ng/mL (0.0-4.0)
== END | disposition home or self-care (01) ==
LOC: MTLAB 13:56
PROVIDERS: PCP Family Medicine; Referring Provider Urology; Visit Provider Urology
DX: C61 Malignant neoplasm of prostate (principal)
CPT/HCPCS: 36415; 84153

== ENCOUNTER 2022-08-12 12:56 | Observation (INO) | payer MEDICARE, SELFPAY ==
--- NOTE | 2022-07-23 08:12 | EKG12_ITS ---
Test Reason : PRE-OP Blood Pressure : / mmHG Vent. Rate : 067 BPM Atrial Rate : 067 BPM P-R Int : 178 ms QRS Dur : 084 ms QT Int : 410 ms P-R-T Axes : 030 011 007 degrees QTc Int : 433 ms Normal sinus rhythm Normal ECG Confirmed by EFRAIN NORRIS, BETTY ([id number]), website/blog editor SLADE STARR ([id number]) on 07/26/2022 9:09:40 AM Referred By: [place] Confirmed By:BETTY ZUNIGA MD
--- NOTE | 2022-07-23 08:15 | RAD_ITS ---
STUDY: X-RAY CHEST REASON FOR EXAM: Male, 71 years old. Preop for shoulder surgery TECHNIQUE: PA and lateral views of the chest. COMPARISON: None. FINDINGS: The lungs are clear and expanded. There is no demonstrated pleural abnormality. Normal size heart. Normal mediastinum and matt. Normal visualized pulmonary arteries. Normal visualized aortic arch and descending thoracic aorta. Normal visualized thoracic spine. Normal visualized ribs, clavicles, and shoulders. There is no demonstrated abnormality of the visualized soft tissue structures of the upper abdomen. RAD/Chest PA and Lateral IMPRESSION: Normal x-ray examination of the chest. Electronically Signed: Alejandro Jo MD at 11:43 EST ,
[2022-07-23 09:19] LABS: Absolute Lymphocyte Count 1.33 X10^3/uL (0.83-4.51); Absolute Neutrophil Count 4.1 X10^3/uL (2.0-7.7); Basophil# 0.04 X10^3/uL; Basophil% 0.6 % (0-1); Eosinophil# 0.34 X10^3/uL; Eosinophils% 5.2 % (0-5); Hematocrit 39.7 % (40-54); Hemoglobin 12.8 g/dL (13.0-16.5); Lymphocyte # 1.33 X10^3/ul (0.83-4.51); Lymphocyte % 20.4 % (19-41); Mean Corp Hgb Conc 32.2 g/dL (32-36); Mean Corpuscular Hgb 29.7 pg (27.0-32.0); Mean Corpuscular Volume 92.1 fL (80-94); Mean Platelet Vol. 10.4 fl (6.2-12.0); Monocyte# 0.67 X10^3/uL; Monocyte% 10.3 % (0-10); NRBC Flagged by Analyzer 0 % (0-5); Neutrophil # 4.12 X10^3/uL (2.7-7.7); Platelet Count 276 K/mm3 (150-450); RBC Distribution Width CV 13.4 % (11.6-14.6); RBC Distribution Width SD 45.7 fl (35.1-43.9); Red Blood Count 4.31 M/mm3 (4.6-6.2); White Blood Count 6.5 K/mm3 (4.4-11.0)
[2022-07-23 09:47] LABS: Magnesium 2.3 mg/dL (1.6-2.6)
[2022-07-23 09:51] LABS: Anion Gap 8 (5-15); BUN 15 mg/dL (7-18); BUN/Creat Ratio 18.8 RATIO (10-20); Calcium,Total 9.2 mg/dL (8.5-10.1); Chloride 107 mmol/L (98-107); EST Glomerular Filtration Rate 102 mL/min (>60); Est Glom Filt Rate - Afr Amer 123 mL/min (>60); Glucose 107 mg/dL (74-106); Potassium 4.4 mmol/L (3.5-5.1); Sodium Level 143 mmol/L (136-145)
[2022-08-12] VITALS (13 sets, daily range): BP systolic 125–141; BP diastolic 72–90; PULSE 68–85; RESP 16–18; TEMP 36.1–37; O2SAT 92–100; BMI 29.8
[2022-08-12] MEDS: Acetaminophen 500 MG Tablet 1000 MG PO ×2 (08:49→16:38)
[2022-08-12] MEDS: Celecoxib 200 MG Capsule 400 MG PO (08:50)
[2022-08-12] MEDS: Gabapentin 600 MG Tablet PO (08:50)
[2022-08-12] MEDS: Lactated Ringers 1,000 ML 15 ML IV (09:18)
[2022-08-12 09:36] LABS: Bedside Glucose 87 mg/dL (74-106)
--- NOTE | 2022-08-12 10:00 | SHO_PTH ---
PATIENT: YOSI GUTIERREZ LOC: MS3 U#:[id number] AGE/SX: 71/M ROOM: [facility] [place] RE08/12/[address]: Dr. Roman Camacho DO : 1950 BED: 1 DIS: 08/13/2022 SPEC #: [id number] RECD: 08/13/22 08:30 STATUS: TONY TONNY #: [id number] SABRINA: 08/12/22 10:[address]: Roman Camacho DEPT: SURGICAL PATHOLOGY RECD BY: Anupama Zuniga ENTERED: 08/13/22 10:18 SP TYPE: HUMERUS OTHR DR: MD Dr. Roman Churchill MD Tissues: Humerus, NOS Procedures: Decalcification bone/plaque Surgery Specimen Level IV HEADER OPERATION: ERAS, total shoulder replacement, reverse PRE-OP DIAGNOSIS: Osteoarthritis left shoulder TISSUE SUBMITTED: Humeral head bone and tissue, left shoulder MICROSCOPIC DIAGNOSIS Humeral head, total shoulder replacement/resection: Humeral head with degenerative osteoarthritic changes. DORINDA:nik 08/17/2022 MICROSCOPIC DESCRIPTION Slides are reviewed. GROSS DESCRIPTION Received is one container labeled with the patient?s name and designated humeral head, bone and tissue left shoulder. The specimen consists of a humeral head measuring 5.5 x 6.0 x 2.0 cm. The articular surface shows areas of erosion, eburnation and osteophyte formation. No soft tissue is identified. Cotton Farmer sections are submitted in one cassette after decalcification. / DORINDA:nik 08/13/2022 TC:5 CPT: 51437, 56396
[2022-08-12] MEDS: Cefazolin 2 GM in 0.9% Normal Saline 100 ML IV (11:19)
[2022-08-12] MEDS: TXA 1000mg in NS100 100ml (IVPB at Incision) 660 MG IV (11:27)
[2022-08-12] MEDS: TXA 1000mg in NS100 100ml (IVPB at Closure) 660 MG IV (12:38)
[2022-08-12] MEDS: Lactated Ringers 1,000 ML 999 ML IV (13:20)
--- NOTE | 2022-08-12 13:34 | RAD_ITS ---
STUDY: X-RAY - LEFT SHOULDER REASON FOR EXAM: Male, 71 years old. post op -- AP and Lateral X-Ray of operative shoulder in PACU TECHNIQUE: 2 view(s) of the shoulder. COMPARISON: X-ray of the left shoulder dated July 13, 2021 FINDINGS: The humeral head has been resected and a newly placed prosthesis is present with its stem well seated within the proximal one third shaft. The humeral prosthesis proximal head articulating component demonstrates good alignment with the newly placed glenoid ball prosthesis. The glenoid prosthesis is anchored into the bone by several cancellous screws. Expected postoperative gas and soft tissue swelling noted around the shoulder joint. No occult fractures. Normal visualized pulmonary apex. Normal acromioclavicular joint. Normal acromion. RAD/Shoulder min 2 Views IMPRESSION: 1. Status post total left shoulder arthroplasty Electronically Signed: Anil Solitario MD at 13:57 EST ,
[2022-08-12] MEDS: Lactated Ringers 1,000 ML 125 ML IV (14:05)
--- NOTE | 2022-08-12 14:25 | PCM.OPRPT ---
Report of Operation Date of Procedure: 08/12/22 Description of Surgical Findings:: Preoperative diagnosis: Left shoulder rotator cuff arthropathy Postoperative diagnosis: Left shoulder rotator cuff arthropathy Procedure: Left reverse total shoulder arthroplasty Surgeon: Roman Camacho DO Membership Solicitor: DESMOND Ross Anesthesia: General endotracheal Radio Reporter: Sal Clement CRNA Complications: None apparent Drains: None Estimated blood loss: 200 cc Urinary output: None IV fluids: 1200 cc crystalloid Specimens: None Surgical implants: Tornier Aequalis PerFORM+ reversed half wedge baseplate 29 mm diameter, +3 lateralized glenosphere cobalt chrome 39 mm diameter, Tornier perform inlay stem size #3, + 0 mm retentive size number 3 39 mm diameter polyethylene insert, short central post and peripheral screws x4. Surgical indications: This is a 71-year-old male with persistent left shoulder pain. He did have worsening symptoms over the last several months. X-rays revealed primary glenohumeral arthritis with superior migration of the humeral head. His preoperative evaluation of his rotator cuff was nonfunctional.. 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 He failed nonoperative management in the form of activity modification, NSAIDs, physical therapy, corticosteroid injections. I recommended a reverse shoulder arthroplasty. We obtained a preoperative CT scan for planning. The risks, benefits, alternatives the procedure was reviewed with the patient and he agreed to proceed. Risks included but were not limited to bleeding, infection, instability, loss of life or limb, risk of anesthesia, neurovascular injury, persistent pain, stiffness, prolonged immobilization, need for additional surgery, loosening of orthopedic hardware. He expressed understanding and wished to proceed with surgery. Surgical details: Patient arrived to [facility] morning of the procedure and was greeted by the same day surgery staff. Prior to his procedure, I greeted the patient in the preoperative holding area I identified the patient by name, record number, and date of . Informed consent was confirmed. The operative extremity was marked. All questions were answered to patient satisfaction. An interscalene block was administered prior to procedure by anesthesia staff for postoperative and intraoperative analgesia. At time of his procedure, patient was brought to the operative suite and positioned supine on a standard table with a beachchair attachment. General anesthesia was induced after all bony prominences were well-padded. Endotracheal tube was placed. After adequate anesthesia and securing the tube, we prepared the patient to be positioned in the beachchair position. A well-padded kiln head house operator was applied. The nonoperative extremity was placed in a well arm dee. He was then brought into the beachchair position after we confirmed an appropriate blood pressure. We then spun the bed 45 degrees. The operative extremity was then prepared. In the butterfly wing of the bed was removed and a well-padded torso strap was applied to secure the patient to the bed. The operative extremity was now free. We then prepped and draped the left upper extremity in normal, sterile orthopedic fashion. We then performed a timeout with all parties in attendance in agreement with the side, site, and operation be performed. 2 g Ancef was administered prior to incision by anesthesia staff, as well as 1 g TXA IV. No concerns were voiced and we elected to proceed. I first marked a standard deltopectoral incision just lateral to the coracoid process in line with the long axis of the humerus. Skin was sharply incised with 10 blade scalpel. I then dissected bluntly through the subcutaneous layers and found the fat stripe between the deltoid and pectoralis major. The cephalic vein was then identified and protected. It was mobilized and retracted laterally with the deltoid. I then bluntly dissected underneath the deltoid with a Orozco elevator. Luis Angel retractor was placed. The upper 1 cm of the pectoralis major was released. I then identified the long head of the biceps tendon in the intertubercular groove. This was tenodesed in situ with #2 FiberWire. I then amputated the biceps proximal to the tenodesis site and followed the tendon to the supraglenoid tubercle where it was amputated. Significant synovial fluid was noted over in the biceps sheath. I then elevated the biceps tendon. This identified the lesser and greater tuberosities. The supraspinatus was completely torn and retracted with an exposed greater tuberosity. I then performed a subscapularis peel while rotating the humerus externally. A significant glenohumeral effusion was encountered and drained. I tagged the subscapularis for possible repair later with a tagging suture. Humeral head was then dislocated anteriorly. Appropriate access to the humeral head was confirmed. I then subluxed the humeral head posteriorly with a Fukuda retractor placed around the posterior lip of the glenoid. Inferior capsule was tensioned. I was able to palpate the axillary nerve. Inferior capsule was then released to the 4 o'clock position of the glenoid face. 3 sided subscapularis release was performed with Bovie cautery. I then remove the Fukuda retractor and redislocated the shoulder anteriorly. I then made a anatomic neck cut of the cartilaginous surface of the humeral head. Sizing plate for a size # 3 stem was utilized to determine appropriate reaming size. A central pin was placed engaging the lateral cortex of the humerus. A size # 3 reamer was used to ream the humeral metaphysis and prepare for the inlay stem. A canal finding reamer was utilized prior to sequential broaching to a size # 3 short stem with excellent rotational and axial purchase in the humerus. I remove the broach handle left the size # [address]. I then subluxed the humerus posterior to the glenoid. I then placed retractors around the posterior and anterior glenoid to expose the glenoid. Glenoid labrum was removed with Bovie cautery protecting the axillary nerve. Inferior osteophyte was debrided with a rongeur. We then used the custom guide from [employer] to position our centering pin, exiting approximately 25 mm from the joint surface along the anterior scapula. Guide was removed and pin was analyzed and compared to preoperative planning. It appeared to be in appropriate position. The Nautilus shaped reamer was then placed over top of the centering pin to ream the paleoglenoid. I then utilized the 35 degree half wedge reamer to ream the Benjie glenoid. I then remove the reamer and placed the trial baseplate which achieved excellent cortical contact. I then used the cannulated drill for the short central post. Post and baseplate was assembled on the back table. We then inserted the baseplate and central post the assembled baseplate to an appropriate depth with good press-fit purchase. A [place] was used to confirm depth. Cortical screws then were placed in the peripheral holes with good purchase to compress the baseplate to the glenoid. 2 additional locking screws were placed. The baseplate had excellent purchase and the entire scapula would rotate with rotation of the baseplate. We then impacted the 39 mm glenosphere with +3 lateralization and tightened the locking screw mechanism. We then removed retractors and turned our attention back to the humerus. I placed a standard + 0 millimeters retentive polyethylene insert. I then reduced the shoulder. There was excellent range of motion and stability in all planes of motion. We selected this as our final size. We removed trials from the humerus after final dislocation. I copiously irrigated the canal. Broach was placed on hand and then impacted to an appropriate depth. Final + 0 mm retentive polyethylene insert was placed. Final reduction was then performed. The subscapularis was then identified with a tagging suture. Repair would have been likely under undue tension and likely failed. I elected to not perform a subscapularis repair. We then copiously irrigated the wound with sterile Betadine and normal saline solution. We reapproximated the interval with 0 Vicryl suture. Subcutaneous layers were reapproximated with 2 -0 Vicryl suture. Skin was finally running V-Loc 3-0 Monocryl suture and Dermabond. A sterile silver Mepilex dressing was applied. An additional 1 g TXA was administered IV at time of wound closure. Patient was then placed in an ultra sling. Patient tolerated procedure well without complication. He was positioned back in the supine position extubated in the operative suite. He was [facility] and subsequently to PACU in stable condition. Intraoperative medications: 2 g Ancef IV, 1 g TXA IV x2 Post Operative Plan: Due to history of coronary artery disease, patient will be placed in observation overnight for medical monitoring. Plan for discharge home on postoperative day #1. Weightbearing: Nonweightbearing left upper extremity, okay for pendulums. Range of motion of wrist elbow and hand as tolerated. Antibiotics: 2 g Ancef IV prior to incision, 24 hours IV antibiotics postoperatively DVT Prophylaxis: Aspirin enteric-coated 81 mg twice daily starting tomorrow [place]: None Dressing: Maintain silver dressing x7 days. Okay to shower dressing on started on day 4 X-Rays: 2 weeks postop in the office Pain Medication: Oxycodone Rx upon discharge Follow-up: 2 weeks post-operatively with me in the office
--- NOTE | 2022-08-12 15:36 | PN.HOSP_ITS ---
Reason for Visit Reason for Visit: Diagnoses Encounter for other preprocedural examination (08/12/22) Subjective Subjective 71-year-old male presents to the hospital for elective shoulder surgery. States that his medical history is been stable and has not had any major changes to his home medications. Denies any chest pain or shortness of breath. Shoulder pain is controlled Objective Data Objective Data Vital Signs: Vital Signs Temp Pulse Resp BP Pulse Ox O2 Del Method O2 Flow Rate 98.5 F 72 18 138/82 H 98 Room Air 4 08/12/22 15:13 08/12/22 15:13 08/12/22 15:13 08/12/22 15:13 08/12/22 15:13 08/12/22 15:13 08/12/22 15:13 Oxygen Flow Rate (L/min) 4 Oxygen Delivery Method Room Air Weight: 208 lb Body Mass Index (BMI) 29.8 Intake & Output: Intake and Output for Last 24 Hours 08/11/22 08/12/22 08/13/22 03:59 03:59 03:59 Intake Total 1432 / 1432 Balance 1432 / 1432 Lab / Micro Data Result Diagrams: 08/13/22 06:05 08/13/22 06:05 Labs: Laboratory Results - last 24 hr 08/12/22 08:54: POC Glucose 87 Micro: Microbiology 07/23/22 08:36 Swab (Method) Nasal Screen MRSA/MSSA - Final Radiography Diagnostic Testing: Radiology Impression Shoulder X-Ray 08/12/22 13:34 IMPRESSION: 1. Status post total left shoulder arthroplasty Electronically Signed: Anil Solitario MD at 13:57 EST , Physical Exam Narrative General: Alert, Oriented x3, Cooperative, No apparent distress HEENT: Atraumatic, PERRLA, EOMI, Normocephalic Oral: Moist Mucosa Neck: Supple, No JVD Lungs: Clear to auscultation, Normal air movement, No rhonchi, No wheeze, No rales Cardiovascular: Regular rate, Regular Rhythm, Normal S1, Normal S2, No murmurs Abdomen: Soft, Non Tender, Non-Distended, No Hepato-splenomegaly Extremities: No edema, Capillary Refill Less than 3 Seconds Skin: Dressing intact Musculoskeletal: No Tenderness to Palpation of Joints or Extremities Neurological: Cranial nerves II-XII grossly intact, Motor Exam 5/5 strength thr oughout, Sensory exam intact to light touch and pain Psych/Mental Status: Normal Affect, Appropriate Assessment & Plan Assessment/Plan (1) Status post reverse arthroplasty of left shoulder: PLAN: Plan 1. Status post reverse arthroplasty of his left shoulder for rotator cuff arthropathy 08/12/2022 ? Continue with pain meds per primary ? PT/OT ? Likely discharge in the morning 2. CAD status post stent/HTN/HLD ? Blood pressure is stable, continue with his home blood pressure medications ? Continue with statin DVT: SCDs Charges/Coding Visit Charges Office Visits / Consults: [id number] IP Consult L2
[2022-08-12] MEDS: oxyCODONE 5 MG Tablet PO (16:37)
[2022-08-12] MEDS: Cefazolin 1 GM/50 ML BAG IV (18:54)
[2022-08-12] MEDS: Gabapentin 300 MG Capsule PO (21:22)
[2022-08-12] MEDS: Carvedilol 6.25 MG Tablet PO (21:22)
[2022-08-12] MEDS: Senna/Docusate Sodium 1 Tablet 2 TABLET PO (21:22)
[2022-08-12] MEDS: Atorvastatin Calcium 40 MG Tablet PO (21:22)
[2022-08-13] MEDS: Acetaminophen 500 MG Tablet 1000 MG PO ×2 (02:07→09:26)
[2022-08-13] MEDS: Cefazolin 1 GM/50 ML BAG IV (02:08)
[2022-08-13] MEDS: oxyCODONE 5 MG Tablet PO ×2 (02:13→09:28)
[2022-08-13 02:14] VITALS: BP 124/74; PULSE 79; RESP 18; TEMP 36.6; O2SAT 94
[2022-08-13 03:13] VITALS: BMI 29.8
[2022-08-13] MEDS: Gabapentin 300 MG Capsule PO (04:57)
[2022-08-13 06:40] LABS: Hematocrit 35.7 % (40-54); Hemoglobin 11.7 g/dL (13.0-16.5); Mean Corp Hgb Conc 32.8 g/dL (32-36); Mean Corpuscular Volume 91.5 fL (80-94); Mean Platelet Vol. 10.5 fl (6.2-12.0); Platelet Count 244 K/mm3 (150-450); RBC Distribution Width CV 13.5 % (11.6-14.6); RBC Distribution Width SD 45.7 fl (35.1-43.9); White Blood Count 11.8 K/mm3 (4.4-11.0)
[2022-08-13 06:51] VITALS: BMI 29.8
[2022-08-13 07:08] LABS: Anion Gap 9 (5-15); BUN 17 mg/dL (7-18); BUN/Creat Ratio 19.2 RATIO (10-20); Calcium,Total 8.9 mg/dL (8.5-10.1); Chloride 103 mmol/L (98-107); Creatinine, Serum 0.88 mg/dL (0.70-1.30); EST Glomerular Filtration Rate 90 mL/min (>60); Est Glom Filt Rate - Afr Amer 109 mL/min (>60); Estimated Creatinine Clearance 80.65 ml/min; Glucose 134 mg/dL (74-106); Potassium 4.1 mmol/L (3.5-5.1); Sodium Level 138 mmol/L (136-145)
[2022-08-13 07:30] VITALS: O2SAT 98
--- NOTE | 2022-08-13 07:34 | PCM.PN.ORT ---
Subjective Subjective Patient seen and examined. Denies any new complaints. Pain is controlled with current pain regimen. Denies any fevers, chills, nausea vomiting, chest pain or shortness of breath. Urinating without difficulty. Objective Data Objective Data Vital Signs: Vital Signs Temp Pulse Resp BP Pulse Ox O2 Del Method O2 Flow Rate 97.8 F 79 18 124/74 H 94 Room Air 5 08/13/22 02:14 08/13/22 02:14 08/13/22 02:14 08/13/22 02:14 08/13/22 02:14 08/13/22 02:14 08/12/22 15:27 Oxygen Flow Rate (L/min) 5 Oxygen Delivery Method Room Air Weight: 208 lb Body Mass Index (BMI) 29.8 Intake & Output: Intake and Output for Last 24 Hours 08/11/22 08/12/22 08/13/22 23:59 23:59 23:59 Intake Total 3282 / 3282 50 / 50 Output Total 1665 / 1665 Balance 1617 / 1617 50 / 50 Lab / Micro Data Result Diagrams: 08/13/22 06:05 08/13/22 06:05 Labs: Laboratory Results - last 24 hr 08/12/22 08:54: POC Glucose 87 08/13/22 06:05: WBC 11.8 H, RBC 3.90 L, Hgb 11.7 L, Hct 35.7 L, MCV 91.5, MCH 30.0, MCHC 32.8, RDW Std Deviation 45.7 H, RDW Coeff of Nathan 13.5, Plt Count 244, MPV 10.5 08/13/22 06:05: Sodium 138, Potassium 4.1, Chloride 103, Carbon Dioxide 26.0, Anion Gap 9, BUN 17, Creatinine 0.88, Estim Creat Clear Calc 80.65, Est GFR (MDRD) Af Amer 109, Est GFR (MDRD) Non-Af 90, BUN/Creatinine Ratio 19.2, Glucose 134 H, Calcium 8.9 Micro: Microbiology 07/23/22 08:36 Swab (Method) Nasal Screen MRSA/MSSA - Final Radiography Diagnostic Testing: Radiology Impression Shoulder X-Ray 08/12/22 13:34 IMPRESSION: 1. Status post total left shoulder arthroplasty Electronically Signed: Anil Solitario MD at 13:57 EST Reading Location ID and State: [facility] / [place] , Service support , Physical Exam Narrative General - A&Ox3, NAD. VSS/AF. Left upper Extremity - SILT & motor intact in radial, ulnar, musculocutaneous, axillary, and median nerve distributions. Radial, ulnar pulses 2+. Compartments soft and compressible. BCR in finger tips. Incisional dressing C/D/I. Assessment & Plan Assessment/Plan (1) Status post reverse arthroplasty of left shoulder: PLAN: POD#1 s/p left reverse total shoulder arthroplasty - Pain control - Medicine following for medical management - OT-nonweightbearing left upper extremity. Okay for pendulums. Okay for active range of motion elbow, wrist and hand. - DVT PPX -aspirin 81 mg twice daily, SCDs, OANH patel, early mobilization -Plan for discharge home today after therapy goals met.
--- NOTE | 2022-08-13 07:36 | PCM.DC.SUM ---
Providers Date of Admission: 08/12/22 Primary Care Physician: Dr. Enmanuel Bowles MD Consultations 08/12/22 12:53 Consult: Hospitalist Routine Consulting Provider: Roman Monzon Reason for Consult: post op medical management, s/p total shoulder EMERGENT Consult: No MD Notified: Yes Date Notified: 08/12/22 Time Notified: 12:53 Method of Notification: Text Reason For Visit: LT TOTAL SHOULDER REVERSE Diagnosis Discharge Diagnosis (1) Status post reverse arthroplasty of left shoulder: Status: Acute Code(s): Z96.612 - Presence of left artificial shoulder joint Plan: POD#1 s/p left reverse total shoulder arthroplasty - Pain control - Medicine following for medical management - OT-nonweightbearing left upper extremity. Okay for pendulums. Okay for active range of motion elbow, wrist and hand. - DVT PPX -aspirin 81 mg twice daily, SCDOANH mao, early mobilization -Plan for discharge home today after therapy goals met. Medications at Discharge Home Medications cholecalciferol (vitamin D3) 25 mcg (1,000 unit) capsule 25 mcg PO BID 04/06/21 tramadol 50 mg tablet 50 mg PO TID PRN Sleep 01/12/22 amlodipine 10 mg tablet 10 mg PO DAILY #90 tabs 04/14/22 carvedilol 6.25 mg tablet (Coreg) 6.25 mg PO BID #180 tabs 04/14/22 nitroglycerin 0.4 mg sublingual tablet 0.4 mg sublingual Q5-15M PRN chest pain #25 tabs 04/14/22 rosuvastatin 20 mg tablet 20 mg PO DAILY #90 tabs 04/14/22 lisinopril 40 mg tablet 40 mg PO DAILY #90 tabs 07/12/22 aspirin 81 mg tablet,delayed release (Adult Aspirin Regimen) 81 mg PO DAILY 08/10/22 gabapentin 300 mg tablet 300 mg PO TID 08/12/22 acetaminophen 500 mg tablet 1,000 mg PO Q8H 7 days #42 tabs 08/13/22 famotidine 20 mg tablet 20 mg PO DAILY 30 days #30 tabs 08/13/22 meloxicam 15 mg tablet 15 mg PO DAILY 30 days #30 tabs 08/13/22 oxycodone 5 mg tablet 5 - 10 mg PO Q6H PRN PRN Pain Score 4-10 7 days #42 tabs 08/13/22 sennosides 8.6 mg-docusate sodium 50 mg tablet (Stool Softener-Stimulant Laxative) 2 tab PO BID 7 days #28 tabs 08/13/22 Hospital Course Summary of Care Provided Minutes Spent on Discharge: 15 Hospital Course: Patient underwent uncomplicatied L RSA 08/12/22. He was placed in observation. Hospitalist consult placed for medical management. No complications were encountered. He was able to be safely discharged to home on POD#1/ Physical Exam Narrative General - A&Ox3, NAD. VSS/AF. Left upper Extremity - SILT & motor intact in radial, ulnar, musculocutaneous, axillary, and median nerve distributions. Radial, ulnar pulses 2+. Compartments soft and compressible. BCR in finger tips. Incisional dressing C/D/I. Weight / BMI Weight Weight: 208 lb Body Mass Index (BMI) 29.8 ABG / Lab / Microbiology Data Result Diagrams: 08/13/22 06:05 08/13/22 06:05 Laboratory: Laboratory Results - last 24 hr 08/12/22 08:54: POC Glucose 87 08/13/22 06:05: WBC 11.8 H, RBC 3.90 L, Hgb 11.7 L, Hct 35.7 L, MCV 91.5, MCH 30.0, MCHC 32.8, RDW Std Deviation 45.7 H, RDW Coeff of Nathan 13.5, Plt Count 244, MPV 10.5 08/13/22 06:05: Sodium 138, Potassium 4.1, Chloride 103, Carbon Dioxide 26.0, Anion Gap 9, BUN 17, Creatinine 0.88, Estim Creat Clear Calc 80.65, Est GFR (MDRD) Af Amer 109, Est GFR (MDRD) Non-Af 90, BUN/Creatinine Ratio 19.2, Glucose 134 H, Calcium 8.9 Microbiology: Microbiology 07/23/22 08:36 Swab (Method) Nasal Screen MRSA/MSSA - Final Radiography Diagnostic Testing: Radiology Impression Shoulder X-Ray 08/12/22 13:34 IMPRESSION: 1. Status post total left shoulder arthroplasty Electronically Signed: Anil Solitario MD at 13:57 EST Reading Location ID and State: [facility] / [place] , Service support , Meaningful Use Info Meaningful Use Diagnoses (Choose all that apply): None applicable Discharge Plan Admission Admit Date/Time: 08/12/22 12:56 Primary Reason for Your Visit: Left shoulder replacement Attending Provider: Roman Camacho Primary Care Provider: Enmanuel Bowles Consulting Providers: Roman Monzon Instructions Additional Instructions / Restrictions: Follow preprinted instructions from your surgeons office. Discharge Orders/Prescriptions Prescriptions: New sennosides-docusate sodium [Stool Softener-Stimulant Laxat] 8.6-50 mg Tablet 2 tab PO BID 7 Days Qty: 28 0RF acetaminophen 500 mg Tablet 1,000 mg PO Q8H 7 Days Qty: 42 0RF famotidine 20 mg Tablet 20 mg PO DAILY 30 Days Qty: 30 0RF oxycodone 5 mg Tablet 5 - 10 mg PO Q6H PRN PRN (Reason: Pain Score 4-10) 7 Days Qty: 42 0RF meloxicam 15 mg tablet 15 mg PO DAILY 30 Days Qty: 30 0RF Continued cholecalciferol (vitamin D3) 25 mcg (1,000 unit) capsule 25 mcg PO BID tramadol 50 mg tablet 50 mg PO TID PRN (Reason: Sleep) aspirin [Adult Aspirin Regimen] 81 mg tablet,delayed release (DR/EC) 81 mg PO DAILY gabapentin 300 mg Tablet 300 mg PO TID amlodipine 10 mg tablet 10 mg PO DAILY Qty: 90 3RF carvedilol [Coreg] 6.25 mg tablet 6.25 mg PO BID Qty: 180 3RF Rx Instructions: must administer with a meal/food nitroglycerin 0.4 mg tablet, sublingual 0.4 mg sublingual Q5-15M PRN (Reason: chest pain) Qty: 25 3RF Rx Instructions: until response; do not exceed 3 doses per event rosuvastatin 20 mg tablet 20 mg PO DAILY Qty: 90 3RF lisinopril 40 mg tablet 40 mg PO DAILY Qty: 90 3RF Discontinued acetaminophen 650 mg Tablet Extended Release 650 mg PO Q12H PRN (Reason: Pain) Referrals / Follow Up: Enmanuel Bowles MD [Primary Care Provider] - Roman Camacho DO [Med Staff - Active Staff] - Disposition Disposition (needs filled in before D/C Order can be placed): Home, Self Care
--- NOTE | 2022-08-13 07:42 | DCINST_ITS ---
Discharge Instructions Follow Up Care Test Results: Test results from this visit will be discussed in further detail at your follow- up appointment, if applicable. Discharge Plan Admission Admit Date/Time: 08/12/22 12:56 Primary Reason for Your Visit: Left shoulder replacement Attending Provider: Roman Camacho Primary Care Provider: Enmanuel Bowles Consulting Providers: Roman Monzon Instructions Additional Instructions / Restrictions: Follow preprinted instructions from your surgeons office. Discharge Orders/Prescriptions Prescriptions: New sennosides-docusate sodium [Stool Softener-Stimulant Laxat] 8.6-50 mg Tablet 2 tab PO BID 7 Days Qty: 28 0RF acetaminophen 500 mg Tablet 1,000 mg PO Q8H 7 Days Qty: 42 0RF famotidine 20 mg Tablet 20 mg PO DAILY 30 Days Qty: 30 0RF oxycodone 5 mg Tablet 5 - 10 mg PO Q6H PRN PRN (Reason: Pain Score 4-10) 7 Days Qty: 42 0RF meloxicam 15 mg tablet 15 mg PO DAILY 30 Days Qty: 30 0RF Continued cholecalciferol (vitamin D3) 25 mcg (1,000 unit) capsule 25 mcg PO BID tramadol 50 mg tablet 50 mg PO TID PRN (Reason: Sleep) aspirin [Adult Aspirin Regimen] 81 mg tablet,delayed release (DR/EC) 81 mg PO DAILY gabapentin 300 mg Tablet 300 mg PO TID amlodipine 10 mg tablet 10 mg PO DAILY Qty: 90 3RF carvedilol [Coreg] 6.25 mg tablet 6.25 mg PO BID Qty: 180 3RF Rx Instructions: must administer with a meal/food nitroglycerin 0.4 mg tablet, sublingual 0.4 mg sublingual Q5-15M PRN (Reason: chest pain) Qty: 25 3RF Rx Instructions: until response; do not exceed 3 doses per event rosuvastatin 20 mg tablet 20 mg PO DAILY Qty: 90 3RF lisinopril 40 mg tablet 40 mg PO DAILY Qty: 90 3RF Discontinued acetaminophen 650 mg Tablet Extended Release 650 mg PO Q12H PRN (Reason: Pain) Referrals / Follow Up: Enmanuel Bowles MD [Primary Care Provider] - Roman Camacho DO [Med Staff - Active Staff] - Disposition Disposition (needs filled in before D/C Order can be placed): Home, Self Care
[2022-08-13] MEDS: Carvedilol 6.25 MG Tablet PO (09:26)
[2022-08-13] MEDS: Aspirin E.C. 81 MG Tablet PO (09:26)
[2022-08-13] MEDS: Lisinopril 40 MG Tablet PO (09:27)
[2022-08-13] MEDS: amLODIPine 10 MG Tablet PO (09:27)
[2022-08-13] MEDS: Famotidine 20 MG Tablet PO (09:27)
[2022-08-13] MEDS: Senna/Docusate Sodium 1 Tablet 2 TABLET PO (09:28)
[2022-08-13 10:00] VITALS: BP 145/85; PULSE 97; RESP 18; TEMP 36.6; O2SAT 94
--- NOTE | 2022-08-13 11:33 | CASEMGMT ---
RN?CM?ACUTE CARE PHYSICAL THERAPIST?CM?to room to meet with patient for initial transition planning/care coordination?assessment.?RN?CM?introduced self and role at [facility].? Pt voices understanding and consents to?assessment?at this time.? Pt standing in room, dressed, and ready to go home. Pt is A/O at this time and answers all questions appropriately.?? Care providers, pharmacy, and demographics verified/updated at this time. PCP: Dr Bowles Specialists: Dr Camacho-ortho, Dr Tee-cardiology Preferred [facility]acy: [facility] Insurance: [facility] Prescription Benefit:?Yes LNOK: , Kamila Living Arrangements: Lives w/. Indep w/ADL's and IADL's Transportation:?Pt states drives self and states no transportation concerns at this time.? also drives. DME: ? Uses no DME @ baseline. Has sling in place. Therapy: Pt states he has an appt @ [facility] on 08/28 for therapy. Pt wishes to return home and states has no concerns with going home. PLAN:??Home w/OP therapy Toi SHEPHERDN?RN?CM
== END 2022-08-13 11:34 | disposition home or self-care (01) ==
LOC: SDC 13:07 → MS3 13:07
PROVIDERS: Anesthesiology; Admitting Provider Student in an Organized Health Care Education/Training Program; PCP Family Medicine; Referring Provider Student in an Organized Health Care Education/Training Program; Visit Provider Student in an Organized Health Care Education/Training Program
PROC: (CPT 23472; principal; 2022-08-12 09:30)
DX: M19.012 Primary osteoarthritis, left shoulder (principal); I10 Essential (primary) hypertension; E78.00 Pure hypercholesterolemia, unspecified; Z79.899 Other long term (current) drug therapy; Z79.82 Long term (current) use of aspirin; Z87.891 Personal history of nicotine dependence; E66.3 Overweight; Z68.29 Body mass index [BMI] 29.0-29.9, adult; Z79.02 Long term (current) use of antithrombotics/antiplatelets; I25.10 Atherosclerotic heart disease of native coronary artery without angina pectoris
CPT/HCPCS: 23472; 01638; 64415; 36415; 71046; 73030; 80048; 82962; 83735; 85025; 85027; 87081; 88305; 88311; 93005; 94668; 96361; 96365; 96366; 97166; 99221; 99406; C1776; J7120; G0378; J2405; J3475

== ENCOUNTER → 2022-11-09 | Outpatient (CLI) | payer MEDICARE, SELFPAY ==
--- NOTE | 2022-11-09 12:37 | STRESSREP ---
Stress Test Report Exercise myocardial perfusion stress test. 72-year-old man with a history of chest pain Stress protocol: Resting EKG demonstrates normal sinus rhythm with a rate of 72 bpm resting blood pressure is 140/72 mmHg. The patient exercised according to the regular Vern protocol for a total duration of 6 minutes attaining a maximum heart rate of 153 bpm which was 102% of maximum predicted heart rate; the maximum workload was 7 metabolic equivalents. At rest there were no ST or T wave changes noted to suggest ischemia and at peak exercise upsloping ST changes only were noted which did not meet the criteria for ischemia. No clinical angina was noted the test was terminated due to the target heart rate being achieved/fatigue. The peak blood pressure was 172/64 mmHg. Rate-pressure product was 25,400. Myocardial perfusion protocol. 14.7 mCi of technetium 99m sestamibi was injected at rest. The patient exercised according to regular Vern protocol for total duration of 6 minutes and at peak exercise 44.4 mCi of technetium 99m sestamibi was injected stress images were obtained stress and rest images were reconstructed in comparing the short axis vertical long and horizontal long axis. Gated images were also obtained. Perfusion SPECT analysis: Review of the stress images demonstrate normal uptake of tracer noted in all areas of the myocardium. The resting images similarly demonstrate normal uptake of tracer noted in all areas of the myocardium. No areas of reversibility are noted to suggest ischemia no previous infarct was noted. Gated SPECT analysis: The gated ejection fraction is 62%. Conclusion: Normal exercise myocardial perfusion stress test at a moderate workload Preserved ejection fraction.
== END | disposition home or self-care (01) ==
PROVIDERS: PCP Family Medicine; Referring Provider Physician Assistant Medical; Visit Provider Physician Assistant Medical
DX: R07.9 Chest pain, unspecified (principal); I25.10 Atherosclerotic heart disease of native coronary artery without angina pectoris; Z95.5 Presence of coronary angioplasty implant and graft
CPT/HCPCS: 78452; 93017; A9500; A4216

== ENCOUNTER 2023-02-11 08:02 | Outpatient (CLI) | payer MEDICARE, SELFPAY ==
[2023-02-11 10:22] LABS: Absolute Lymphocyte Count 1.38 X10^3/uL (0.83-4.51); Absolute Neutrophil Count 7.5 X10^3/uL (2.0-7.7); Basophil# 0.03 X10^3/uL; Basophil% 0.3 % (0-1); Hematocrit 41.8 % (40-54); Hemoglobin 13.3 g/dL (13.0-16.5); Lymphocyte # 1.38 X10^3/ul (0.83-4.51); Lymphocyte % 13.8 % (19-41); Mean Corp Hgb Conc 31.8 g/dL (32-36); Mean Corpuscular Volume 91.3 fL (80-94); NRBC Flagged by Analyzer 0 % (0-5); Neutrophil # 7.45 X10^3/uL (2.7-7.7); Neutrophil % 74.7 % (47-70); Platelet Count 312 K/mm3 (150-450); RBC Distribution Width CV 13.6 % (11.6-14.6); Red Blood Count 4.58 M/mm3 (4.6-6.2)
[2023-02-11 10:39] LABS: Vitamin B12 1811 pg/mL (211-911); Vitamin D,25 Hydroxy 44.6 ng/mL
[2023-02-11 10:54] LABS: ALB/GLOB Ratio 0.9 RATIO (0.9-2.4); AST(SGOT) 23 U/L (15-37); Alanine Aminotransfer ALT/SGPT 54 U/L (16-61); Albumin, Serum 3.4 g/dL (3.2-5.0); Alkaline Phosphatase 76 U/L (45-117); Anion Gap 7 (5-15); BUN 18 mg/dL (7-18); BUN/Creat Ratio 22.3 RATIO (10-20); Calcium,Total 8.3 mg/dL (8.5-10.1); Chloride 105 mmol/L (98-107); Cholesterol 161 mg/dL (200); Creatinine, Serum 0.81 mg/dL (0.70-1.30); EST Glomerular Filtration Rate 100 mL/min (>60); Est Glom Filt Rate - Afr Amer 121 mL/min (>60); Globulin 3.6 g/dL (2.2-4.2); Glucose 94 mg/dL (74-106); High Density Lipoprotein 49 mg/dL; Potassium 3.8 mmol/L (3.5-5.1); Sodium Level 139 mmol/L (136-145); Thyroid Stim Hormone (TSH) 1.81 uIU/mL (0.358-3.74); Triglycerides 197 mg/dL; Very Low Density Lipoprotein 39 mg/dL (5-40)
== END 2023-02-11 23:59 | disposition home or self-care (01) ==
LOC: MFPLAB 08:02
PROVIDERS: PCP Family Medicine; Visit Provider Family Medicine
DX: I25.10 Atherosclerotic heart disease of native coronary artery without angina pectoris (principal); E53.8 Deficiency of other specified B group vitamins; E55.9 Vitamin D deficiency, unspecified; T14.8XXA Other injury of unspecified body region, initial encounter
CPT/HCPCS: 36415; 80053; 80061; 82306; 82607; 84443; 85025

== ENCOUNTER → 2023-02-25 | Outpatient (CLI) | payer MEDICARE, SELFPAY ==
[2023-02-25 12:58] LABS: PSA,Total- Diagnostic 0.06 ng/mL (0.0-4.0)
[2023-03-01 16:29] LABS: Vitamin B12 706 pg/mL (211-911)
== END | disposition home or self-care (01) ==
LOC: MFPLAB 10:19
PROVIDERS: PCP Family Medicine; Visit Provider Urology
DX: C61 Malignant neoplasm of prostate (principal)
CPT/HCPCS: 36415; 82607; 84153

== ENCOUNTER → 2023-08-26 | Outpatient (CLI) | payer MEDICARE, SELFPAY ==
[2023-08-26 10:33] LABS: PSA,Total- Diagnostic 0.05 ng/mL (0.0-4.0)
== END | disposition home or self-care (01) ==
LOC: MTLAB 08:56
PROVIDERS: PCP Family Medicine; Referring Provider Urology; Visit Provider Urology
DX: C61 Malignant neoplasm of prostate (principal)
CPT/HCPCS: 36415; 84153

== ENCOUNTER → 2023-09-26 | Outpatient (CLI) | payer MEDICARE, SELFPAY ==
[2023-09-26 12:25] LABS: Absolute Lymphocyte Count 1.26 X10^3/uL (0.83-4.51); Absolute Neutrophil Count 4.2 X10^3/uL (2.0-7.7); Basophil# 0.05 X10^3/uL; Basophil% 0.7 % (0-1); Eosinophil# 0.47 X10^3/uL; Hematocrit 40.4 % (40-54); Hemoglobin 13.3 g/dL (13.0-16.5); Lymphocyte # 1.26 X10^3/ul (0.83-4.51); Lymphocyte % 18.7 % (19-41); Mean Corp Hgb Conc 32.9 g/dL (32-36); Mean Corpuscular Hgb 29.2 pg (27.0-32.0); Mean Corpuscular Volume 88.8 fL (80-94); Mean Platelet Vol. 11.4 fl (6.2-12.0); Monocyte# 0.79 X10^3/uL; Monocyte% 11.7 % (0-10); NRBC Flagged by Analyzer 0 % (0-5); Neutrophil # 4.15 X10^3/uL (2.7-7.7); Neutrophil % 61.5 % (47-70); Platelet Count 224 K/mm3 (150-450); RBC Distribution Width CV 13.3 % (11.6-14.6); RBC Distribution Width SD 43.5 fl (35.1-43.9); Red Blood Count 4.55 M/mm3 (4.6-6.2); White Blood Count 6.8 K/mm3 (4.4-11.0)
== END | disposition home or self-care (01) ==
LOC: MFPLAB 10:02
PROVIDERS: PCP Family Medicine; Visit Provider Family Medicine
DX: D18.00 Hemangioma unspecified site (principal)
CPT/HCPCS: 36415; 85025

== ENCOUNTER → 2024-04-04 | Outpatient (CLI) | payer MEDICARE, SELFPAY ==
[2024-04-04 10:20] LABS: Hematocrit 40.3 % (40-54); Hemoglobin 13.2 g/dL (13.0-16.5); Mean Corp Hgb Conc 32.8 g/dL (32-36); Mean Corpuscular Hgb 29.8 pg (27.0-32.0); Mean Platelet Vol. 11.2 fl (6.2-12.0); Platelet Count 229 K/mm3 (150-450); RBC Distribution Width CV 13.8 % (11.6-14.6); RBC Distribution Width SD 46.2 fl (35.1-43.9); Red Blood Count 4.43 M/mm3 (4.6-6.2); White Blood Count 7.2 K/mm3 (4.4-11.0)
[2024-04-04 10:27] LABS: Erythrocyte Sedimentation Rate 9 mm/hr (0-20)
[2024-04-04 10:35] LABS: Vitamin B12 589 pg/mL (211-911); Vitamin D,25 Hydroxy 49.6 ng/mL
[2024-04-04 11:30] LABS: ALB/GLOB Ratio 1.2 RATIO (0.9-2.4); AST(SGOT) 26 U/L (15-37); Alanine Aminotransfer ALT/SGPT 35 U/L (16-61); Alkaline Phosphatase 77 U/L (45-117); Anion Gap 8 (5-15); BUN 17 mg/dL (7-18); BUN/Creat Ratio 21.5 RATIO (10-20); Calcium,Total 9.2 mg/dL (8.5-10.1); Chloride 108 mmol/L (98-107); Creatinine, Serum 0.79 mg/dL (0.70-1.30); EST Glomerular Filtration Rate 102 mL/min (>60); Est Glom Filt Rate - Afr Amer 124 mL/min (>60); Globulin 3.2 g/dL (2.2-4.2); Glucose 111 mg/dL (74-106); Magnesium 2.4 mg/dL (1.6-2.6); Potassium 4.3 mmol/L (3.5-5.1); Protein, Total 7.2 g/dL (6.4-8.2); Sodium Level 139 mmol/L (136-145)
== END | disposition home or self-care (01) ==
LOC: MFPLAB 08:37
PROVIDERS: PCP Family Medicine; Visit Provider Family Medicine
DX: R25.2 Cramp and spasm (principal); I10 Essential (primary) hypertension
CPT/HCPCS: 36415; 80053; 82306; 82607; 83735; 84403; 84443; 85027; 85652

== ENCOUNTER → 2024-05-30 | Outpatient (CLI) | payer MEDICARE, SELFPAY ==
[2024-05-30 11:05] LABS: Cholesterol 122 mg/dL (200); Follicle Stimulating Hormone 38.3 mIU/mL; High Density Lipoprotein 44 mg/dL; Luteinizing Hormone 18.5 mIU/mL; Triglycerides 84 mg/dL; Very Low Density Lipoprotein 17 mg/dL (5-40)
== END | disposition home or self-care (01) ==
LOC: MFPLAB 08:47
PROVIDERS: PCP Family Medicine; Referring Provider Family Medicine; Visit Provider Family Medicine
DX: I10 Essential (primary) hypertension (principal); E34.9 Endocrine disorder, unspecified
CPT/HCPCS: 36415; 80061; 82533; 83001; 83002; 84403

== ENCOUNTER → 2024-07-16 | Outpatient (CLI) | payer MEDICARE, SELFPAY ==
[2024-07-16 10:49] LABS: Cholesterol 130 mg/dL (200); Follicle Stimulating Hormone 36.2 mIU/mL; High Density Lipoprotein 51 mg/dL; Luteinizing Hormone 20.1 mIU/mL; Triglycerides 87 mg/dL; Very Low Density Lipoprotein 17 mg/dL (5-40)
[2024-07-17 04:06] LABS: PROLACTIN 13.4 ng/mL (3.6-25.2)
== END | disposition home or self-care (01) ==
LOC: MTLAB 08:07
PROVIDERS: PCP Family Medicine; Referring Provider Family Medicine; Visit Provider Family Medicine
DX: E34.9 Endocrine disorder, unspecified (principal); R79.89 Other specified abnormal findings of blood chemistry
CPT/HCPCS: 36415; 80061; 82533; 83001; 83002; 84146; 84403

== ENCOUNTER → 2024-10-08 | Outpatient (CLI) | payer MEDICARE, SELFPAY ==
[2024-10-08 13:16] LABS: PSA,Total- Diagnostic 0.29 ng/mL (0.00-4.00)
== END | disposition home or self-care (01) ==
LOC: MTLAB 10:27
PROVIDERS: PCP Family Medicine; Referring Provider Urology; Visit Provider Urology
DX: C61 Malignant neoplasm of prostate (principal)
CPT/HCPCS: 36415; 84153

== ENCOUNTER → 2024-10-23 | Outpatient (CLI) | payer MEDICARE, SELFPAY ==
[2024-10-23 10:11] LABS: Absolute Lymphocyte Count 1.26 X10^3/uL (0.83-4.51); Absolute Neutrophil Count 3.4 X10^3/uL (2.0-7.7); Basophil# 0.03 X10^3/uL; Basophil% 0.5 % (0-1); Eosinophil# 0.26 X10^3/uL; Eosinophils% 4.7 % (0-5); Hematocrit 42.8 % (40-54); Hemoglobin 14.4 g/dL (13.0-16.5); Lymphocyte # 1.26 X10^3/ul (0.83-4.51); Lymphocyte % 22.9 % (19-41); Mean Corp Hgb Conc 33.6 g/dL (32-36); Mean Corpuscular Hgb 30.4 pg (27.0-32.0); Mean Corpuscular Volume 90.3 fL (80-94); Mean Platelet Vol. 10.7 fl (6.2-12.0); Monocyte# 0.58 X10^3/uL; Monocyte% 10.5 % (0-10); NRBC Flagged by Analyzer 0 % (0-5); Neutrophil # 3.36 X10^3/uL (2.7-7.7); Neutrophil % 61.2 % (47-70); Platelet Count 226 K/mm3 (150-450); RBC Distribution Width CV 12.9 % (11.6-14.6); RBC Distribution Width SD 43.1 fl (35.1-43.9); Red Blood Count 4.74 M/mm3 (4.6-6.2); White Blood Count 5.5 K/mm3 (4.4-11.0)
[2024-10-23 10:15] LABS: Erythrocyte Sedimentation Rate 9 mm/hr (0-20)
[2024-10-23 11:03] LABS: ALB/GLOB Ratio 1.7 RATIO (0.9-2.4); AST(SGOT) 31 U/L (<=37); Alanine Aminotransfer ALT/SGPT 35 U/L (<=46); Albumin, Serum 4.4 g/dL (3.4-4.8); Alkaline Phosphatase 68 U/L (40-129); Anion Gap 11 (5-15); BUN 17 mg/dL (4-19); BUN/Creat Ratio 18.3 RATIO (10-20); Calcium,Total 9.2 mg/dL (7.6-11.0); Carbon Dioxide 23.7 mmol/L (21.0-32.0); Chloride 105 mmol/L (98-108); EST Glomerular Filtration Rate 90 (>60); Globulin 2.5 g/dL (2.2-4.2); Glucose 93 mg/dL (70-99); Potassium 4.1 mmol/L (3.3-5.1); Protein, Total 6.9 g/dL (5.9-8.4); Sodium Level 139 mmol/L (133-145); Total Bilirubin 0.36 mg/dL (0.00-1.30); Vitamin D,25 Hydroxy 47.4 ng/mL (30-100)
== END | disposition home or self-care (01) ==
LOC: MFPLAB 08:48
PROVIDERS: PCP Family Medicine; Referring Provider Family Medicine; Visit Provider Family Medicine
DX: R25.2 Cramp and spasm (principal); R79.89 Other specified abnormal findings of blood chemistry
CPT/HCPCS: 36415; 80053; 82306; 84402; 84403; 85025; 85652

== ENCOUNTER → 2024-10-29 | Outpatient (CLI) | payer MEDICARE, SELFPAY ==
--- NOTE | 2024-10-29 11:23 | US_ITS ---
PROCEDURE: ULTRASOUND NONVASCULAR LIMITED/SOFT TISSUE 10/29/2024 REASON FOR EXAM: SUBCUTANEOUS NODULE OF LT THUMB TECHNIQUE: Ultrasound targeted to the palpable abnormality at the LEFT THUMB. COMPARISON: No relevant prior. FINDINGS: A hypoechoic, heterogeneous nodule is seen at the site of the palpable finding measuring 1.9 x 2.1 x 0.8 cm. No hyperemia or hypervascularity. No other significant findings. US/Ext Non Vasc Limited/Soft Tiss IMPRESSION: 1. Small complex nodule seen at the site of the palpable finding, palmar aspec t of the left thumb. Reading Location: [facility]
== END | disposition home or self-care (01) ==
PROVIDERS: PCP Family Medicine; Referring Provider Family Medicine; Visit Provider Family Medicine
DX: R22.32 Localized swelling, mass and lump, left upper limb (principal)
CPT/HCPCS: 76882

== ENCOUNTER → 2024-11-08 | Outpatient (CLI) | payer MEDICARE, SELFPAY ==
--- NOTE | 2024-11-07 13:15 | MASS_PTH ---
PATIENT: YOSI GUTIERREZ LOC: [facility] U#:[id number] AGE/SX: 74/M ROOM: RE11/08/[address]: Dr. Roman Camacho DO : 1950 BED: DIS: 11/08/2024 SPEC #: [id number] RECD: 11/08/24 14:54 STATUS: TONY REQ #: [id number] SABRINA: 11/07/24 13:[address]: Roman Camacho DEPT: SURGICAL PATHOLOGY RECD BY: Fortunato Gonzáles ENTERED: 11/08/24 16:29 SP TYPE: Mass OTHR DR: Dr. Mark Bowles MD Tissues: A - Thumb, NOS Procedures: Immunohistochemical Stains Surgery Specimen Level V IHC Stain ADDITIONAL HEADER OPERATION: Left thumb excision PRE-OP DIAGNOSIS: Left thumb mass TISSUE SUBMITTED: A- Left thumb mass MICROSCOPIC DIAGNOSIS A. Left thumb, mass, excision: * Low grade myofibroblastic proliferation consistent with nodular fasciitis - see note and Comment. * Note: The spindle cells are positive for SMA, Vimentin, and Calponin. CD34 highlights vascular endothelium. S-100, Desmin, DIANE and Calretinin are negative. The findings are consistent with nodular fasciitis. The histologic differential diagnosis includes myofibroma. COMMENT Selected slides/images were reviewed in intradepartmental consultation by Dr Manolo Holland (bone and soft tissue pathology division, [facility]). MICROSCOPIC DESCRIPTION Slides are reviewed. All matched controls reacted appropriately. These tests were developed and their performance characteristics determined by [facility]. They may not have been cleared or approved by the [place] Food and Drug Administration. The FDA has determined that such clearance or approval is not necessary.? The above immunohistochemical/dualISH?markers are ordered and reviewed by the Pathologist. GROSS DESCRIPTION A. Received in formalin in a container labeled with the patient's name, date of , and left thumb mass are multiple white-hancock, irregular fragments of indurated tissue measuring 3.0 x 2.2 x 1.0 cm in aggregate. No distinct skin is grossly recognized. The largest fragments are sectioned to reveal white-hancock, homogenous, and somewhat indurated cut surfaces. [employer] sections submitted in A1-2. [facility] 11-08-2024 CPT:34741,30631,33127v4
== END | disposition home or self-care (01) ==
LOC: LABSPEC 15:23
PROVIDERS: PCP Family Medicine; Referring Provider Student in an Organized Health Care Education/Training Program; Visit Provider Student in an Organized Health Care Education/Training Program
DX: D21.12 Benign neoplasm of connective and other soft tissue of left upper limb, including shoulder (principal); M72.4 Pseudosarcomatous fibromatosis
CPT/HCPCS: 88305; 88307; 88341; 88342

== ENCOUNTER → 2024-12-12 | Outpatient (CLI) | payer MEDICARE, SELFPAY | END | disposition home or self-care (01) | PROVIDERS: PCP Family Medicine; Referring Provider Nurse Practitioner Acute Care; Visit Provider Nurse Practitioner Acute Care | DX: G47.10 Hypersomnia, unspecified (principal) | CPT/HCPCS: 95810 ==

== ENCOUNTER → 2025-04-18 | Outpatient (CLI) | payer MEDICARE, SELFPAY ==
[2025-04-18 11:02] LABS: PSA,Total- Diagnostic 0.25 ng/mL (0.00-4.00)
== END | disposition home or self-care (01) ==
LOC: MTLAB 08:36
PROVIDERS: PCP Family Medicine; Referring Provider Family Medicine; Visit Provider Family Medicine
DX: C61 Malignant neoplasm of prostate (principal)
CPT/HCPCS: 36415; 84153

== ENCOUNTER → 2025-06-11 | Outpatient (CLI) | payer MEDICARE, SELFPAY ==
[2025-06-11 12:23] LABS: Hematocrit 39.9 % (40-54); Hemoglobin 13.0 g/dL (13.0-16.5); Mean Corp Hgb Conc 32.6 g/dL (32-36); Mean Corpuscular Volume 91.1 fL (80-94); Mean Platelet Vol. 11.0 fl (6.2-12.0); Platelet Count 214 K/mm3 (150-450); RBC Distribution Width CV 13.5 % (11.6-14.6); RBC Distribution Width SD 45.9 fl (35.1-43.9); Red Blood Count 4.38 M/mm3 (4.6-6.2); White Blood Count 5.2 K/mm3 (4.4-11.0)
[2025-06-11 12:38] LABS: AST(SGOT) 32 U/L (<=37); Alanine Aminotransfer ALT/SGPT 38 U/L (<=46); Albumin, Serum 4.4 g/dL (3.4-4.8); Alkaline Phosphatase 65 U/L (40-129); Anion Gap 9 (5-15); BUN 12 mg/dL (4-19); BUN/Creat Ratio 14.2 RATIO (10-20); Calcium,Total 9.1 mg/dL (7.6-11.0); Carbon Dioxide 27.5 mmol/L (21.0-32.0); Chloride 104 mmol/L (98-108); Cholesterol 132 mg/dL (<=200); Globulin 2.5 g/dL (2.2-4.2); Glucose 91 mg/dL (70-99); Low Density Lipoprotein Calc. 68 mg/dL; PSA,Total - Annual Screen 0.33 ng/mL (0.02-4.00); Potassium 4.2 mmol/L (3.3-5.1); Triglycerides 117 mg/dL; Very Low Density Lipoprotein 23 mg/dL (5-40); cholesterol:hdl ratio screen 3.11
== END | disposition home or self-care (01) ==
LOC: MTLAB 10:35
PROVIDERS: PCP Family Medicine; Referring Provider Family Medicine; Visit Provider Family Medicine
DX: Z12.5 Encounter for screening for malignant neoplasm of prostate (principal); R79.89 Other specified abnormal findings of blood chemistry; I25.10 Atherosclerotic heart disease of native coronary artery without angina pectoris
CPT/HCPCS: 36415; 80053; 80061; 84153; 84403; 85027; G0103